=== PATIENT | female | born 1955 | race American Indian/Alaskan Native ===

== ENCOUNTER 2019-05-15 13:49 | Inpatient (IN) | payer MEDICARE ==
[2019-05-15] MEDS ORDERED: ASPIRIN PO ONE (14:00)
[2019-05-15] MEDS ORDERED: NITROSTAT SL ONE (14:06)
--- NOTE | 2019-05-15 14:06 | Event Note ---
Date: 05/15/19 64 y.o with 2 day h/o left sided chest pain, constant, 6/10, aching pain, radiating to her back, no n/v, sob, or diaphoresis. Patient denies any al leviating or exacerbating factors. has been without her blood pressure medications in 2 months. The initial assessment/diagnostic orders/clinical plan/treatment(s) is/are subject to change based on patient's health status,clinical progression and re- assessment by fellow clinical providers in the ED. Further treatment and workup at subsequent clinical providers discretion. Patient/guardian urged not to elope from the ED as their condition may be serious if not clinically assessed and managed.
[2019-05-15 14:39] LABS: Basophils % (Auto) 0.5 % (0.0-1.8); Eosinophils # (Auto) 0.4 K/mm3 (0.0-0.4); Eosinophils % (Auto) 5.4 % (0.0-4.3); Hematocrit 33.5 % (30.3-42.9); Hemoglobin 11.3 gm/dl (10.1-14.3); Lymphocytes # (Auto) 2.9 K/mm3 (1.2-5.4); Lymphocytes % (Auto) 35.1 % (13.4-35.0); Mean Corpuscular HGB Conc 34 % (30-34); Mean Corpuscular Volume 90 fl (79-97); Monocytes # (Auto) 0.9 K/mm3 (0.0-0.8); Monocytes % (Auto) 10.3 % (0.0-7.3); Platelet Count 257 K/mm3 (140-440); Red Blood Count 3.71 M/mm3 (3.65-5.03); Red Cell Distribution Width 13.4 % (13.2-15.2)
--- NOTE | 2019-05-15 14:39 | Emergency Department Report ---
ED Chest Pain HPI - General Chief Complaint: Chest Pain Stated Complaint: CHEST PAIN Time Seen by Provider: 05/15/19 14:09 Source: patient, old records reviewed (no previous medical records for review) Mode of arrival: Ambulatory Limitations: No Limitations - History of Present Illness Initial Comments: 64 year old female with a history of [id number] diabetes, hypertension, and possible elevated cholesterol presents to the hospital with complaints of left-sided chest pain past 2 days. Pain is the left lower chest and radiates to the lateral left chest and back. Pain is constant and aching. No aggravating or alleviating factors reported. Pain is rated 8/10 intensity. She denies shortness of breath, nausea, vomiting, diaphoresis, calf tenderness, leg asymmetry, history of PE/DVT, or cardiac history. She's been noncompliant with all her medications for greater than 2 months (maybe as much as 2 months). She does not smoke. She denies known history of family CAD. She does not have a primary care doctor. Severity scale (0 -10): 8 - Related Data Allergies Allergy/AdvReac Type Severity Reaction Status Date / Time No Known Allergies Allergy Verified 05/15/19 15:24 Heart Score - HEART Score History: Slightly suspicious EKG: Non-specific Age: 45-65 Risk factors: > 3 risk factors or hx of atherosclerotic disease Troponin: < normal limit HEART Score: 4 ED Review of Systems ROS: Stated complaint: CHEST PAIN Other details as noted in HPI Comment: All other systems reviewed and negative ED Past Medical Hx - Past Medical History Hx Hypertension: Yes Hx Diabetes: Yes - Surgical History Past Surgical History?: No - Social History Smoking Status: Never Smoker Substance Use Type: None ED Physical Exam - General Limitations: No Limitations - Other Other exam information: General: No limitations, patient is alert in no acute distress Head exam: Atraumatic, normocephalic Eyes exam: Normal appearance, pupils equal reactive to light, extraocular movements intact ENT: Moist mucous membrane, normal oropharynx Neck exam: Normal inspection, full range of motion, no meningismus nontender Respiratory exam: Clear to auscultation bilateral, no wheezes, rales, crackles Cardiovascular: Normal rate and rhythm, normal heart sounds, mild tenderness at left anterolateral chest wall Abdomen: Soft, nondistended, and nontender, with normal bowel sounds, no rebound, or guarding Extremity: Full range of motion normal inspection no deformity, no calf tenderness or edema Back: Normal Inspection, full range of motion, no tenderness Neurologic: Alert, oriented x3, cranial nerves intact, no motor or sensory deficit Psychiatric: normal affect, normal mood Skin: Warm, dry, intact ED Course Vital Signs 05/15/19 05/15/19 05/15/19 14:03 14:15 14:36 Temperature 97.9 F Pulse Rate 78 84 Respiratory 18 15 Rate Blood Pressure 200/85 Blood Pressure [Left] O2 Sat by Pulse 100 100 98 Oximetry 05/15/19 05/15/19 05/15/19 14:46 14:51 14:55 Temperature Pulse Rate 79 73 78 Respiratory 14 17 Rate Blood Pressure 211/92 211/92 Blood Pressure 211/92 [Left] O2 Sat by Pulse 100 99 Oximetry 05/15/19 05/15/19 05/15/19 14:57 15:00 15:16 Temperature Pulse Rate 80 78 Respiratory 18 15 19 Rate Blood Pressure 222/106 222/106 Blood Pressure [Left] O2 Sat by Pulse 100 99 97 Oximetry 05/15/19 05/15/19 15:30 15:46 Temperature Pulse Rate 77 74 Respiratory 16 25 H Rate Blood Pressure 222/106 211/99 Blood Pressure [Left] O2 Sat by Pulse 100 100 Oximetry ED Medical Decision Making - Lab Data Result diagrams: 05/15/19 14:16 05/15/19 14:16 Lab Results 05/15/19 05/15/19 05/15/19 Range/Units 14:16 14:16 14:16 WBC 8.3 (4.5-11.0) K/mm3 RBC 3.71 (3.65-5.03) M/mm3 Hgb 11.3 (10.1-14.3) gm/dl Hct 33.5 (30.3-42.9) % MCV 90 (79-97) fl MCH 31 (28-32) pg MCHC 34 (30-34) % RDW 13.4 (13.2-15.2) % Plt Count 257 (140-440) K/mm3 Lymph % (Auto) 35.1 H (13.4-35.0) % [place] % (Auto) 10.3 H (0.0-7.3) % Eos % (Auto) 5.4 H (0.0-4.3) % Baso % (Auto) 0.5 (0.0-1.8) % Lymph # 2.9 (1.2-5.4) K/mm3 [place] # 0.9 H (0.0-0.8) K/mm3 Eos # 0.4 (0.0-0.4) K/mm3 Baso # 0.0 (0.0-0.1) K/mm3 Seg Neutrophils % 48.7 (40.0-70.0) % Seg Neutrophils # 4.0 (1.8-7.7) K/mm3 PT 13.6 (12.2-14.9) Sec. INR 1.07 (0.87-1.13) APTT 29.3 (24.2-36.6) Sec. Sodium 143 (137-145) mmol/L Potassium 4.2 (3.6-5.0) mmol/L Chloride 104.7 (98-107) mmol/L Carbon Dioxide 26 (22-30) mmol/L Anion Gap 17 mmol/L BUN 29 H (7-17) mg/dL Creatinine 1.8 H (0.7-1.2) mg/dL Estimated GFR 34 ml/min BUN/Creatinine Ratio 16 % Glucose 116 H (65-100) mg/dL Calcium 9.0 (8.4-10.2) mg/dL Troponin T < 0.010 (0.00-0.029) ng/mL - EKG Data -: EKG Interpreted by Ma EKG shows normal: sinus rhythm, axis (qrs 30), QRS complexes (qrsd 78), ST-T waves (no stemi) Rate: normal (78) - EKG Data When compared to previous EKG there are: previous EKG unavailable - Radiology Data Radiology results: report reviewed INDICATION: Chest Pain. COMPARISON: FINDINGS: Support devices: None. Heart: Within normal limits. Lungs: No acute air space or interstitial disease. Pleura: No significant pleural effusion. No pneumothorax. Additional findings: None. IMPRESSION: 1. No acute findings. - Medical Decision Making Plan to admit for chest pain and uncontrolled hypertension and medication noncompliance Patient treated with aspirin and nitroglycerin paste in the ED She also has renal insufficiency and denies previous history dr Acuna, hospitalist informed of admission - Differential Diagnosis mi, unstable angina, htn emergency, msk pain Critical Care Time: No Critical care attestation.: If time is entered above; I have spent that time in minutes in the direct care of this critically ill patient, excluding procedure time. ED Disposition Clinical Impression: Chest pain, Uncontrolled hypertension, Non-insulin dependent type 2 diabetes mellitus, Noncompliance with medication regimen, Acute renal insufficiency Disposition: OP ADMIT IP TO THIS HOSP Is pt being admited?: Yes Does the pt Need Aspirin: Yes Condition: Stable Time of Disposition: 15:52 (DR Acuna/hosp)
[2019-05-15 14:42] LABS: INR 1.07 (0.87-1.13); Partial Thromboplastin Time 29.3 Sec. (24.2-36.6)
[2019-05-15 14:54] LABS: BUN/Creatinine Ratio 16; Blood Urea Nitrogen 29 mg/dL (7-17); Hemolysis Index 3
[2019-05-15] MEDS ORDERED: NITRO-BID 2% TP ONE ×2 (15:02→15:05)
--- NOTE | 2019-05-15 15:07 | XRay Report ---
CHEST 2 VIEWS INDICATION: Chest Pain. COMPARISON: FINDINGS: Support devices: None. Heart: Within normal limits. Lungs: No acute air space or interstitial disease. Pleura: No significant pleural effusion. No pneumothorax. Additional findings: None. IMPRESSION: 1. No acute findings. Signer Name: Justin Guardado MD Signed: 05/15/2019 3:02 PM Workstation Name: [id number]
[2019-05-15] MEDS ORDERED: BABY ASPIRIN PO STA (15:52)
[2019-05-15] MEDS ORDERED: SODIUM CHLORIDE FLUSH SYRINGE 10 ML IV PRN (15:52)
[2019-05-15] MEDS ORDERED: ZOFRAN IV PRN (15:52)
[2019-05-15] MEDS ORDERED: PROVENTIL IH PRN (15:52)
[2019-05-15] MEDS ORDERED: TYLENOL PO PRN (15:52)
[2019-05-15] MEDS ORDERED: NITROSTAT SL PRN (15:52)
--- NOTE | 2019-05-15 15:52 | History and Physical Report ---
History of Present Illness Chief complaint: My chest hurts History of present illness: 64 YO Female with MO, HTN, HLD, DM, Obesity Hypoventilation presents to ED for evaluation. Pt states that she has experienced pain in her chest over the past 2 days with acutely worsening symptoms over the past 12 hours. Pt states tht pain is 8-9/10, constant, aching, substernal, radiates to the left lateral chest and left side of her back. Pain not worsened with exertion, pain not relieved with rest. Pt acknowledges decreased exercise tolerance, and dypsnea with exertion. Pt denies fever, chills, palpitations, NVD, Trauma, BRBPR, Productive cough, skin rash, prolonged travel/immobility, Individual/family history of DVT/PE/B leedign/Blood Clotting Disorders, or recent ill contacts. Pt acknowledges medication noncompliance, dietary noncompliance. Pt transported to [facility] via private vehicle. Pt seen and evaluated in ED and found to have Acute Kidney Injury, Angina, as well as symptoms consistent with CHF. Pt admitted to [facility]. Cardiology consulted in ED. No prior admission for review. No medication listed at time of admission for reconciliation. Past History Past Medical History: hypertension, hyperlipidemia, other (MO, Obesity Hypoventilation.) Past Surgical History: No surgical history, Other (reviewed) Social history: single. denies: smoking, alcohol abuse, prescription drug abuse Family history: diabetes, hypertension Medications and Allergies Allergies Allergy/AdvReac Type Severity Reaction Status Date / Time No Known Allergies Allergy Verified 05/15/19 15:24 Review of Systems Constitutional: no weight loss, no weight gain, no fever, no chills Ears, nose, mouth and throat: no ear pain, no ear discharge, no tinnitis, no decreased hearing, no nose pain Breasts: no change in shape, no swelling, no mass Cardiovascular: chest pain, dyspnea on exertion, decreased exercise tolerance, no orthopnea, no palpitations, no rapid/irregular heart beat, no lightheadedness, no paroxysmal nocturnal dyspnea Respiratory: no cough, no cough with sputum, no excessive sputum, no hemoptysis, no shortness of breath Gastrointestinal: no nausea, no vomiting, no diarrhea, no constipation Genitourinary Female: no pelvic pain, no flank pain, no menorrhagia, no dysuria Rectal: no pain, no incontinence, no bleeding Musculoskeletal: no neck stiffness, no neck pain, no shooting arm pain, no arm numbness/tingling, no low back pain, no shooting leg pain Integumentary: no rash, no pruritis, no redness, no sores, no wounds Neurological: no transient paralysis, no paralysis, no weakness, no parathesias, no numbness, no tingling Psychiatric: no anxiety, no memory loss, no change in sleep habits, no sleep disturbances, no insomnia, no hypersomnia, no change in appetite Endocrine: no cold intolerance, no heat intolerance, no polyphagia, no excessive thirst, no polydipsia, no polyuria, no nocturia, no excessive sweating, no flushing Hematologic/Lymphatic: no easy bruising, no easy bleeding, no lymphadenopathy, no lymphedema Allergic/Immunologic: no urticaria, no allergic rhinitis, no wheezing, no anaphylaxis, no angioedema Exam - Constitutional Vitals: Temp Pulse Resp BP Pulse Ox 97.9 F 74 25 H 211/99 100 05/15/19 14:03 05/15/19 15:46 05/15/19 15:46 05/15/19 15:46 05/15/19 15:46 General appearance: Present: mild distress - EENT Eyes: Present: PERRL ENT: hearing intact, clear oral mucosa - Neck Neck: Present: supple, normal ROM - Respiratory Respiratory effort: normal Respiratory: bilateral: CTA - Cardiovascular Heart Sounds: Present: S1 & S2. Absent: rub, click - Extremities Extremities: pulses symmetrical, No edema Peripheral Pulses: within normal limits - Abdominal General gastrointestinal: Present: soft, non-tender, non-distended, normal bowel sounds Female genitourinary: Present: normal - Integumentary Integumentary: Present: clear, warm, dry - Musculoskeletal Musculoskeletal: gait normal, strength equal bilaterally - Psychiatric Psychiatric: appropriate mood/affect, intact judgment & insight - Neurologic Neurologic: CNII-XII intact, moves all extremities Results - Labs CBC & Chem 7: 05/15/19 14:16 05/15/19 14:16 Labs: Abnormal lab results 05/15/19 05/15/19 Range/Units 14:16 14:16 Lymph % (Auto) 35.1 H (13.4-35.0) % [place] % (Auto) 10.3 H (0.0-7.3) % Eos % (Auto) 5.4 H (0.0-4.3) % [place] # 0.9 H (0.0-0.8) K/mm3 BUN 29 H (7-17) mg/dL Creatinine 1.8 H (0.7-1.2) mg/dL Glucose 116 H (65-100) mg/dL Assessment and Plan - Patient Problems (1) Diastolic CHF Current Visit: Yes Status: Acute Qualifiers: Heart failure chronicity: acute Qualified Code(s): I50.31 - Acute diastolic (congestive) heart failure Plan to address problem: Admit to telemetry, thyroid panel, magnesium level, echo, strict I/O, daily weight, monitor uop q shift, supplemental oxygen, cardiology consulted in ED, afterload reduction. (2) Hypertensive urgency, malignant Current Visit: Yes Status: Acute Plan to address problem: Monitor BP q shift, IV hydralazine prn, initiate therapy with Amlodipine and HCTZ, (3) Obesity hypoventilation syndrome Current Visit: Yes Status: Acute Plan to address problem: NIPPV as clinically indicated, supplemental oxygen, nebulizer therapy. (4) HLD (hyperlipidemia) Current Visit: Yes Status: Acute Qualifiers: Hyperlipidemia type: mixed hyperlipidemia Qualified Code(s): E78.2 - Mixed hyperlipidemia Plan to address problem: Lipid panel, statin therapy, low cholesterol diet, (5) Angina at rest Current Visit: Yes Status: Acute Plan to address problem: Serial cardiac enzymes, ekg, telemetry, stress test as per cardiology team. c ardiology consulted in ED, chest x ray, CT Abdomen, morphine, nitro, supplemental oxygen, aspirin. (6) MARISELA (acute kidney injury) Current Visit: Yes Status: Acute Plan to address problem: IVF resuscitation therapy, monitor uop q shift, repeat bmp in am (7) Non-insulin dependent type 2 diabetes mellitus Current Visit: Yes Status: Acute Plan to address problem: ADA diet, insulin, accu check, hyoglycemia protocol. (8) Noncompliance with medication regimen Current Visit: Yes Status: Acute Plan to address problem: Pt counseled regarding medication compliance, (9) DVT prophylaxis Current Visit: Yes Status: Acute Plan to address problem: SCD to BLE while in bed, prophylactic heparin
[2019-05-15] MEDS ORDERED: ZOFRAN IV ONE (15:54)
[2019-05-15] MEDS ORDERED: MORPHINE IV ONE (15:54)
[2019-05-15] MEDS ORDERED: ZOFRAN IV NR (16:00)
[2019-05-15 16:49] LABS: Chol/HDL Ratio 5.42 %
[2019-05-15 16:56] LABS: Free T4 (Free Thyroxine) 1.1 ng/dL (0.76-1.46)
[2019-05-15] MEDS ORDERED: ZOFRAN ONE (17:09)
[2019-05-15] MEDS ORDERED: NORVASC ONE (17:09)
[2019-05-15] MEDS ORDERED: MORPHINE ONE (17:10)
[2019-05-15] MEDS ORDERED: HCTZ ONE (17:11)
[2019-05-15] MEDS: HCTZ PO SCH (17:13)
[2019-05-15] MEDS: NORVASC PO SCH (17:14)
[2019-05-15] MEDS ORDERED: HEPARIN SUB-Q SCH (18:00)
--- NOTE | 2019-05-15 18:01 | Cat Scan Report ---
CT ABDOMEN AND PELVIS WITHOUT CONTRAST INDICATION / CLINICAL INFORMATION: pain. TECHNIQUE: Axial CT images were obtained through the abdomen and pelvis without IV contrast. All CT scans at [facility] location are performed using CT dose reduction for ALARA by means of automated exposure control. COMPARISON: None available. FINDINGS: The exam is limited in diagnostic category secondary to patient's body habitus LOWER CHEST: No significant abnormality. LIVER: No significant abnormality. GALLBLADDER: No significant abnormality. BILE DUCTS: No significant abnormality. PANCREAS: No significant abnormality. SPLEEN: Calcified splenic granulomas are present. ADRENALS: The adrenal glands are markedly enlarged left greater than right RIGHT KIDNEY and URETER: No significant abnormality. LEFT KIDNEY and URETER: No significant abnormality. STOMACH and SMALL BOWEL: No significant abnormality. COLON: No significant abnormality. APPENDIX: No significant abnormality. PERITONEUM: No free fluid. No free air. No fluid collection. LYMPH NODES: No significant adenopathy. AORTA and ARTERIES: No significant abnormality. IVC and VEINS: No significant abnormality. URINARY BLADDER: No significant abnormality. REPRODUCTIVE ORGANS: No significant abnormality. ADDITIONAL FINDINGS: None. SKELETAL SYSTEM: Degenerative changes lumbar spine is present IMPRESSION: 1. Bilateral adrenal enlargement-masses, etiology unclear 2. Degenerative changes lumbar spine 3. Limited diagnostic imaging secondary to patient's body habitus Signer Name: Justin Guardado MD Signed: 05/15/2019 5:57 PM Workstation Name: [id number]
[2019-05-15 18:39] LABS: Free T4 (Free Thyroxine) 1.03 ng/dL (0.76-1.46)
[2019-05-15] MEDS: NACL 0.45% 500 ML IV SCH (19:00)
[2019-05-15] MEDS: PEPCID PO SCH (21:36)
[2019-05-15] MEDS: PRAVACHOL PO SCH (21:36)
[2019-05-15] MEDS: SODIUM CHLORIDE FLUSH SYRINGE 10 ML IV SCH (21:37)
[2019-05-15] MEDS: MORPHINE IV PRN (21:45)
[2019-05-15] MEDS: SODIUM CHLORIDE FLUSH SYRINGE 10 ML IV PRN (21:46)
[2019-05-15] MEDS: APRESOLINE IV PRN (21:53)
[2019-05-16] MEDS: SODIUM CHLORIDE FLUSH SYRINGE 10 ML IV PRN (03:48)
[2019-05-16] MEDS: NACL 0.45% 500 ML IV SCH (03:49)
[2019-05-16 06:07] LABS: Alanine Aminotransferase 9 units/L (7-56); Albumin 3.3 g/dL (3.9-5); BUN/Creatinine Ratio 15; Blood Urea Nitrogen 34 mg/dL (7-17); Calcium 8.8 mg/dL (8.4-10.2); Hemolysis Index 2
[2019-05-16] MEDS: PEPCID PO SCH ×2 (10:30→21:58)
[2019-05-16] MEDS: NORVASC PO SCH (10:30)
[2019-05-16] MEDS: HEPARIN SUB-Q SCH ×2 (10:30→22:01)
[2019-05-16] MEDS: HCTZ PO SCH (10:30)
[2019-05-16] MEDS: SODIUM CHLORIDE FLUSH SYRINGE 10 ML IV SCH ×2 (10:31→22:02)
--- NOTE | 2019-05-16 10:50 | Consultation ---
History of Present Illness Consult date: 05/16/19 Consult reason: chest pain History of present illness: 64 year old female presenting with left sided chest pain radiating to the back. She tries to make it feel better with movement. No previous cardiac history or cardiac testing. 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 Past History Past Medical History: hypertension, hyperlipidemia, other (MO, Obesity Hypoventilation.) Past Surgical History: No surgical history, Other (reviewed) Social history: single. denies: smoking, alcohol abuse, prescription drug abuse Family history: diabetes, hypertension Medications and Allergies Allergies Allergy/AdvReac Type Severity Reaction Status Date / Time No Known Allergies Allergy Verified 05/15/19 15:24 Home Medications Medication Instructions Recorded Confirmed Last Taken Type No Known Home Medications [No 05/15/19 05/15/19 Unknown History Reported Home Medications] Active Meds: Active Medications Acetaminophen (Tylenol) 650 mg PO Q4H PRN PRN Reason: Pain MILD(1-3)/Fever >100.5/DELGADO Albuterol (Proventil) 2.5 mg IH Q4HRT PRN PRN Reason: Shortness Of Breath Amlodipine Besylate (Norvasc) 5 mg PO QDAY [facility] Last Admin: 05/16/19 10:30 Dose: 5 mg Documented by: Famotidine (Pepcid) 10 mg PO BID [facility] Last Admin: 05/16/19 10:30 Dose: 10 mg Documented by: Heparin Sodium (Porcine) (Heparin) 5,000 unit SUB-Q Q12HR [facility] Last Admin: 05/16/19 10:30 Dose: 5,000 unit Documented by: Hydralazine HCl (Apresoline) 10 mg IV Q6HR PRN PRN Reason: HTN SBP>160 Last Admin: 05/15/19 21:53 Dose: 10 mg Documented by: Hydrochlorothiazide (Hctz) 25 mg PO QDAY [facility] Last Admin: 05/16/19 10:30 Dose: 25 mg Documented by: Sodium Chloride (Nacl 0.45%) 500 mls @ 50 mls/hr IV DIRECT [facility] Last Admin: 05/16/19 03:49 Dose: 50 mls/hr Documented by: Morphine Sulfate (Morphine) 2 mg IV Q4H PRN PRN Reason: Pain, Moderate (4-6) Last Admin: 05/15/19 21:45 Dose: 2 mg Documented by: Nitroglycerin (Nitrostat) 0.4 mg SL Q5M PRN PRN Reason: Chest Pain Ondansetron HCl (Zofran) 4 mg IV Q8H PRN PRN Reason: Nausea And Vomiting Pravastatin Sodium (Pravachol) 20 mg PO QHS [facility] Last Admin: 05/15/19 21:36 Dose: 20 mg Documented by: Sodium Chloride (Sodium Chloride Flush Syringe 10 Ml) 10 ml IV BID [facility] Last Admin: 05/16/19 10:31 Dose: 10 ml Documented by: Sodium Chloride (Sodium Chloride Flush Syringe 10 Ml) 10 ml IV PRN PRN PRN Reason: LINE FLUSH Last Admin: 05/16/19 03:48 Dose: 10 ml Documented by: Sodium Chloride (Sodium Chloride Flush Syringe 10 Ml) 10 ml IV PRN PRN PRN Reason: LINE FLUSH Review of Systems All systems: negative Physical Examination Vital Signs Temp Pulse Resp BP Pulse Ox 97.9 F 78 18 200/85 100 05/15/19 14:03 05/15/19 14:03 05/15/19 14:03 05/15/19 14:03 05/15/19 14:03 General appearance: no acute distress HEENT: Positive: PERRL Neck: Positive: neck supple Cardiac: Positive: Reg Rate and Rhythm Lungs: Positive: Normal Exam Abdomen: Positive: Soft Results 05/15/19 14:16 05/16/19 04:53 Cardiac Enzymes 05/16/19 Range/Units 04:53 AST 11 (5-40) units/L Coagulation 05/15/19 Range/Units 14:16 PT 13.6 (12.2-14.9) Sec. INR 1.07 (0.87-1.13) APTT 29.3 (24.2-36.6) Sec. Lipids 05/15/19 Range/Units 16:15 Triglycerides 100 (2-149) mg/dL Cholesterol 304 H (50-199) mg/dL HDL Cholesterol 56 (40-59) mg/dL Cholesterol/HDL Ratio 5.42 % CBC 05/15/19 Range/Units 14:16 WBC 8.3 (4.5-11.0) K/mm3 RBC 3.71 (3.65-5.03) M/mm3 Hgb 11.3 (10.1-14.3) gm/dl Hct 33.5 (30.3-42.9) % Plt Count 257 (140-440) K/mm3 Lymph # 2.9 (1.2-5.4) K/mm3 [place] # 0.9 H (0.0-0.8) K/mm3 Eos # 0.4 (0.0-0.4) K/mm3 Baso # 0.0 (0.0-0.1) K/mm3 Comprehensive Metabolic Panel 05/15/19 05/16/19 Range/Units 14:16 04:53 Sodium 143 140 (137-145) mmol/L Potassium 4.2 4.6 (3.6-5.0) mmol/L Chloride 104.7 101.7 (98-107) mmol/L Carbon Dioxide 26 25 (22-30) mmol/L BUN 29 H 34 H (7-17) mg/dL Creatinine 1.8 H 2.3 H (0.7-1.2) mg/dL Glucose 116 H 171 H (65-100) mg/dL Calcium 9.0 8.8 (8.4-10.2) mg/dL AST 11 (5-40) units/L ALT 9 (7-56) units/L Alkaline Phosphatase 75 (35-129) units/L Total Protein 6.5 (6.3-8.2) g/dL Albumin 3.3 L (3.9-5) g/dL EKG interpretations - Telemetry EKG Rhythm: Sinus Rhythm Assessment and Plan Atypical chest pain No ischemic ECG changes Negative troponin x 3 Negative CXR Negative BNP Uncontrolled type II DM Hyperlipidemia LDL 228 Acute on chronic renal failure Bilateral adrenal masses on CT Recommendations: Due to multiple CAD risk factors, will proceed with lexiscan in am
--- NOTE | 2019-05-16 11:10 | Progress Note ---
Assessment and Plan Assessment and plan: 64 YO Female with MO, HTN, HLD, DM, Obesity Hypoventilation presents to ED for evaluation. Pt states that she has experienced pain in her chest over the past 2 days with acutely worsening symptoms over the past 12 hours. Pt states tht pain is 8-9/10, constant, aching, substernal, radiates to the left lateral chest and left side of her back. Pain not worsened with exertion, pain not relieved with rest. Pt acknowledges decreased exercise tolerance, and dypsnea with exertion. Pt denies fever, chills, palpitations, NVD, Trauma, BRBPR, Productive cough, skin rash, prolonged travel/immobility, Individual/family history of DVT/PE/Bleedign/Blood Clotting Disorders, or recent ill contacts. Pt acknowledges medication noncompliance, dietary noncompliance. Pt transported to [facility] via private vehicle. Pt seen and evaluated in ED and found to have Acute Kidney Injury, Angina, as well as symptoms consistent with CHF. Pt admitted to telemetry. Cardiology consulted in ED. No prior admission for review. No med ication listed at time of admission for reconciliation. - Patient Problems (1) Atypical chest pain doubt CHF likely secondary to costochondritis versus hypertensive disease Cardiology input noted. Stress test planned for him. (2) Hypertensive urgency, malignant Current Visit: Yes Status: Acute Plan to address problem: Monitor BP q shift, IV hydralazine prn, initiate therapy with Amlodipine and HCTZ, (3) Obesity hypoventilation syndrome Current Visit: Yes Status: Acute Plan to address problem: NIPPV as clinically indicated, supplemental oxygen, nebulizer therapy. (4) HLD (hyperlipidemia) Current Visit: Yes Status: Acute Qualifiers: Hyperlipidemia type: mixed hyperlipidemia Qualified Code(s): E78.2 - Mixed hyperlipidemia Plan to address problem: Lipid panel, statin therapy, low cholesterol diet, (5) Angina at rest Current Visit: Yes Status: Acute Plan to address problem: Serial cardiac enzymes, ekg, telemetry, stress test as per cardiology team. cardiology consulted in ED, chest x ray, CT Abdomen, morphine, nitro, supplemental oxygen, aspirin. (6) MARISELA (acute kidney injury) Current Visit: Yes Status: Acute Plan to address problem: Continue IVF resuscitation therapy, monitor uop q shift, repeat bmp in am Renal ultrasound reviewed no acute pathology noted Renal us (7) Non-insulin dependent type 2 diabetes mellitus Current Visit: Yes Status: Acute Plan to address problem: ADA diet, insulin, accu check, hyoglycemia protocol. (8) Noncompliance with medication regimen Current Visit: Yes Status: Acute Plan to address problem: Pt counseled regarding medication compliance, (9) ADRENAL enlargement Plan for outpatient endocrinology eval. Patient verbalized understanding, will arrange with PCP (10)DVT prophylaxis Current Visit: Yes Status: Acute Plan to address problem: SCD to BLE while in bed, prophylactic heparin History Interval history: The patient is on examined today reports improvement in symptoms no new complaints at this time. Hospitalist Physical - Physical exam Narrative exam: Physical exam template - Constitutional Vitals: Temp Pulse Resp BP Pulse Ox 98.9 F 77 20 149/59 99 05/16/19 09:09 05/16/19 10:30 05/16/19 09:09 05/16/19 10:30 05/16/19 09:09 General appearance: Present: no acute distress Results - Labs CBC & Chem 7: 05/15/19 14:16 05/16/19 04:53 Labs: Laboratory Last Values WBC 8.3 K/mm3 (4.5-11.0) 05/15/19 14:16 RBC 3.71 M/mm3 (3.65-5.03) 05/15/19 14:16 Hgb 11.3 gm/dl (10.1-14.3) 05/15/19 14:16 Hct 33.5 % (30.3-42.9) 05/15/19 14:16 MCV 90 fl (79-97) 05/15/19 14:16 MCH 31 pg (28-32) 05/15/19 14:16 MCHC 34 % (30-34) 05/15/19 14:16 RDW 13.4 % (13.2-15.2) 05/15/19 14:16 Plt Count 257 K/mm3 (140-440) 05/15/19 14:16 Lymph % (Auto) 35.1 % (13.4-35.0) H 05/15/19 14:16 [place] % (Auto) 10.3 % (0.0-7.3) H 05/15/19 14:16 Eos % (Auto) 5.4 % (0.0-4.3) H 05/15/19 14:16 Baso % (Auto) 0.5 % (0.0-1.8) 05/15/19 14:16 Lymph # 2.9 K/mm3 (1.2-5.4) 05/15/19 14:16 [place] # 0.9 K/mm3 (0.0-0.8) H 05/15/19 14:16 Eos # 0.4 K/mm3 (0.0-0.4) 05/15/19 14:16 Baso # 0.0 K/mm3 (0.0-0.1) 05/15/19 14:16 Seg Neutrophils % 48.7 % (40.0-70.0) 05/15/19 14:16 Seg Neutrophils # 4.0 K/mm3 (1.8-7.7) 05/15/19 14:16 PT 13.6 Sec. (12.2-14.9) 05/15/19 14:16 INR 1.07 (0.87-1.13) 05/15/19 14:16 APTT 29.3 Sec. (24.2-36.6) 05/15/19 14:16 Sodium 140 mmol/L (137-145) 05/16/19 04:53 Potassium 4.6 mmol/L (3.6-5.0) 05/16/19 04:53 Chloride 101.7 mmol/L (98-107) 05/16/19 04:53 Carbon Dioxide 25 mmol/L (22-30) 05/16/19 04:53 18 mmol/L 05/16/19 04:53 BUN 34 mg/dL (7-17) H 05/16/19 04:53 2.3 mg/dL (0.7-1.2) H 05/16/19 04:53 Estimated GFR 26 ml/min 05/16/19 04:53 15 % 05/16/19 04:53 Glucose 171 mg/dL (65-100) H 05/16/19 04:53 Calcium 8.8 mg/dL (8.4-10.2) 05/16/19 04:53 Magnesium 2.30 mg/dL (1.7-2.3) 05/15/19 17:48 < 0.20 mg/dL (0.1-1.2) 05/16/19 04:53 AST 11 units/L (5-40) 05/16/19 04:53 ALT 9 units/L (7-56) 05/16/19 04:53 75 units/L (35-129) 05/16/19 04:53 < 0.010 ng/mL (0.00-0.029) 05/15/19 20:36 NT-Pro-B Natriuret Pep 428.7 pg/mL (0-900) 05/15/19 16:15 6.5 g/dL (6.3-8.2) 05/16/19 04:53 3.3 g/dL (3.9-5) L 05/16/19 04:53 1.0 % 05/16/19 04:53 Triglycerides 100 mg/dL (2-149) 05/15/19 16:15 Cholesterol 304 mg/dL (50-199) H 05/15/19 16:15 228 mg/dL (50-130) H 05/15/19 16:15 56 mg/dL (40-59) 05/15/19 16:15 5.42 % 05/15/19 16:15 TSH 1.610 mlU/mL (0.270-4.200) 05/15/19 17:48 Free T4 1.03 ng/dL (0.76-1.46) 05/15/19 17:48 Active Medications - Current Medications Current Medications: Generic Name Dose Route Start Last Admin Trade Name Freq PRN Reason Stop Dose Admin Acetaminophen 650 mg 05/15/19 15:52 Tylenol PO Q4H PRN Pain MILD(1-3)/Fever >100.5/DELGADO Albuterol 2.5 mg 05/15/19 15:52 Proventil IH Q4HRT PRN Shortness Of Breath Amlodipine Besylate 5 mg 05/15/19 17:00 05/16/19 10:30 Norvasc PO 5 mg QDAY BETO Administration Aspirin 81 mg 05/17/19 10:00 Halfprin Ec PO QDAY BETO Famotidine 10 mg 05/15/19 22:00 05/16/19 10:30 Pepcid PO 10 mg BID BETO Administration Heparin Sodium (Porcine) 5,000 unit 05/16/19 10:00 05/16/19 10:30 Heparin SUB-Q 5,000 unit Q12HR BETO Administration Hydralazine HCl 10 mg 05/15/19 15:56 05/15/19 21:53 Apresoline IV 10 mg Q6HR PRN Administration HTN SBP>160 Hydrochlorothiazide 25 mg 05/15/19 17:00 05/16/19 10:30 Hctz PO 25 mg QDAY BETO Administration Sodium Chloride 500 mls @ 50 mls/hr 05/15/19 16:00 05/16/19 03:49 Nacl 0.45% IV 50 mls/hr DIRECT BETO Administration Morphine Sulfate 2 mg 05/15/19 15:52 05/15/19 21:45 Morphine IV 2 mg Q4H PRN Administration Pain, Moderate (4-6) Nitroglycerin 0.4 mg 05/15/19 15:52 Nitrostat SL Q5M PRN Chest Pain Ondansetron HCl 4 mg 05/15/19 15:52 Zofran IV Q8H PRN Nausea And Vomiting Pravastatin Sodium 20 mg 05/15/19 22:00 05/15/19 21:36 Pravachol PO 20 mg QHS BETO Administration Sodium Chloride 10 ml 05/15/19 22:00 05/16/19 10:31 Sodium Chloride Flush Syringe 10 Ml IV 10 ml BID BETO Administration Sodium Chloride 10 ml 05/15/19 15:52 05/16/19 03:48 Sodium Chloride Flush Syringe 10 Ml IV 10 ml PRN PRN Administration LINE FLUSH Sodium Chloride 10 ml 05/15/19 15:52 Sodium Chloride Flush Syringe 10 Ml IV PRN PRN LINE FLUSH
--- NOTE | 2019-05-16 15:23 | Ultrasound Report ---
ULTRASOUND RENAL INDICATION: [place]. COMPARISON: No relevant prior imaging study available. FINDINGS: RIGHT KIDNEY: Size: 10.8 x 4.5 x 4.5 cm. Echogenicity: Normal. Cortical thickness: Normal. Hydronephrosis: None. Cyst or mass: None. Stones: None. LEFT KIDNEY: Size: 9.0 x 4.9 x 5.0 cm. Echogenicity: Normal. Cortical thickness: Normal. Hydronephrosis: None. Cyst or mass: None. Stones: None. Urinary Bladder: No significant abnormality. Free Fluid: None. Additional Findings: None. IMPRESSION 1. No acute sonographic abnormality of the kidneys. Signer Name: Justin Guardado MD Signed: 05/16/2019 3:19 PM Workstation Name: [id number]
[2019-05-16] MEDS: NACL 0.9% 1000 ML 1,000 ML IV SCH (18:03)
[2019-05-16] MEDS: PRAVACHOL PO SCH (21:58)
[2019-05-16] MEDS: CEPHULAC PO SCH (21:58)
[2019-05-16] MEDS: APRESOLINE IV PRN (22:00)
[2019-05-17] MEDS: MORPHINE IV PRN ×2 (00:27→05:58)
[2019-05-17] MEDS: SODIUM CHLORIDE FLUSH SYRINGE 10 ML IV PRN (00:27)
[2019-05-17 05:35] LABS: Hematocrit 33.1 % (30.3-42.9); Hemoglobin 11.1 gm/dl (10.1-14.3); Mean Corpuscular HGB Conc 34 % (30-34); Mean Corpuscular Volume 91 fl (79-97); Platelet Count 254 K/mm3 (140-440); Red Blood Count 3.63 M/mm3 (3.65-5.03); Red Cell Distribution Width 13.2 % (13.2-15.2)
[2019-05-17] MEDS: APRESOLINE IV PRN ×2 (05:57→20:23)
[2019-05-17 06:01] LABS: Calcium 8.9 mg/dL (8.4-10.2)
[2019-05-17] MEDS ORDERED: LEXISCAN IV ONE ×2 (07:06→08:56)
[2019-05-17] MEDS: HALFPRIN EC PO SCH (12:22)
[2019-05-17] MEDS: NORVASC PO SCH (12:22)
[2019-05-17] MEDS: CEPHULAC PO SCH ×2 (12:22→22:34)
[2019-05-17] MEDS: HEPARIN SUB-Q SCH ×2 (12:22→22:34)
[2019-05-17] MEDS: SODIUM CHLORIDE FLUSH SYRINGE 10 ML IV SCH ×2 (12:23→22:36)
[2019-05-17] MEDS: PEPCID PO SCH ×2 (12:23→22:33)
[2019-05-17] MEDS: PERCOCET 5/325 PO PRN (13:02)
--- NOTE | 2019-05-17 16:44 | Progress Note ---
Assessment and Plan Assessment and plan: 64 YO Female with MO, HTN, HLD, DM, Obesity Hypoventilation presents to ED for evaluation. Pt states that she has experienced pain in her chest over the past 2 days with acutely worsening symptoms over the past 12 hours. Pt states tht pain is 8-9/10, constant, aching, substernal, radiates to the left lateral chest and left side of her back. Pain not worsened with exertion, pain not relieved with rest. Pt acknowledges decreased exercise tolerance, and dypsnea with exertion. Pt denies fever, chills, palpitations, NVD, Trauma, BRBPR, Productive cough, skin rash, prolonged travel/immobility, Individual/family history of DVT/PE/Bleedign/Blood Clotting Disorders, or recent ill contacts. Pt acknowledges medication noncompliance, dietary noncompliance. Pt transported to [facility] via private vehicle. Pt seen and evaluated in ED and found to have Acute Kidney Injury, Angina, as well as symptoms consistent with CHF. Pt admitted to telemetry. Cardiology consulted in ED. No prior admission for review. No med ication listed at time of admission for reconciliation. - Patient Problems (1) Atypical chest pain secondary to costochondritis as a result of hypertensive disease Cardiology input noted. Stress test result pending (2) Hypertensive urgency, malignant Current Visit: Yes Status: Acute Plan to address problem: Monitor BP q shift, IV hydralazine prn, initiate therapy with Amlodipine and will adjust upward to 10mg daily and HCTZ, Give extra dose of Norvasc today, (3) Obesity hypoventilation syndrome Current Visit: Yes Status: Acute Plan to address problem: NIPPV as clinically indicated, supplemental oxygen, nebulizer therapy. (4) HLD (hyperlipidemia) Current Visit: Yes Status: Acute Qualifiers: Hyperlipidemia type: mixed hyperlipidemia Qualified Code(s): E78.2 - Mixed hyperlipidemia Plan to address problem: statin therapy, low cholesterol diet, Result on lipids test discussed with patient (5) MARISELA (acute kidney injury) Current Visit: Yes Status: Acute Plan to address problem: Continue IVF resuscitation therapy, monitor uop q shift, repeat bmp in am Renal ultrasound reviewed no acute pathology noted Renal us- NORMAL Nephrology consult (6) Non-insulin dependent type 2 diabetes mellitus Current Visit: Yes Status: Acute Plan to address problem: ADA diet, insulin, accu check, hyoglycemia protocol. (7) Noncompliance with medication regimen Current Visit: Yes Status: Acute Plan to address problem: Pt counseled regarding medication compliance, (8) ADRENAL enlargement Plan for outpatient endocrinology eval. Patient verbalized understanding, will arrange with PCP (9)DVT prophylaxis Current Visit: Yes Status: Acute Plan to address problem: SCD to BLE while in bed, prophylactic heparin History Interval history: Patient seen and examined, went for stress test. Nursing staff reported that patient complained of reproducible chest pain on return from stress test. Otherwise no new complaints Hospitalist Physical - Physical exam Narrative exam: VITAL SIGNS: Reviewed. GENERAL: The patient appears normally developed, Vital signs as documented. morbidly obese HEAD: No signs of head trauma. EYES: Pupils are equal. Extraocular motions intact. EARS: Hearing grossly intact. MOUTH: Oropharynx is normal. NECK: No adenopathy, no JVD. CHEST: Chest with clear breath sounds bilaterally. No wheezes, rales, or rhonchi. CARDIAC: Regular rate and rhythm. S1 and S2, without murmurs, gallops, or rubs. VASCULAR: No Edema. Peripheral pulses normal and equal in all extremities. ABDOMEN: Soft, non tender and non distended. No rebound or guarding, and no masses palpated. Bowel Sounds normal. MUSCULOSKELETAL: Good range of motion of all major joints. Extremities without clubbing, cyanosis or edema. NEUROLOGIC EXAM: Alert and oriented x 3 No focal sensory or strength deficits. Speech normal. Follows commands. PSYCHIATRIC: Mood normal. SKIN: detial exam as documented in skin assessment - Constitutional Vitals: Temp Pulse Resp BP Pulse Ox 98.4 F 76 18 195/49 99 05/17/19 08:18 05/17/19 11:40 05/17/19 08:18 05/17/19 12:22 05/17/19 03:37 General appearance: Present: no acute distress Results - Labs CBC & Chem 7: 05/17/19 04:36 05/17/19 04:36 Labs: Laboratory Last Values WBC 6.6 K/mm3 (4.5-11.0) 05/17/19 04:36 RBC 3.63 M/mm3 (3.65-5.03) L 05/17/19 04:36 Hgb 11.1 gm/dl (10.1-14.3) 05/17/19 04:36 Hct 33.1 % (30.3-42.9) 05/17/19 04:36 MCV 91 fl (79-97) 05/17/19 04:36 MCH 31 pg (28-32) 05/17/19 04:36 MCHC 34 % (30-34) 05/17/19 04:36 RDW 13.2 % (13.2-15.2) 05/17/19 04:36 Plt Count 254 K/mm3 (140-440) 05/17/19 04:36 Lymph % (Auto) 35.1 % (13.4-35.0) H 05/15/19 14:16 [place] % (Auto) 10.3 % (0.0-7.3) H 05/15/19 14:16 Eos % (Auto) 5.4 % (0.0-4.3) H 05/15/19 14:16 Baso % (Auto) 0.5 % (0.0-1.8) 05/15/19 14:16 Lymph # 2.9 K/mm3 (1.2-5.4) 05/15/19 14:16 [place] # 0.9 K/mm3 (0.0-0.8) H 05/15/19 14:16 Eos # 0.4 K/mm3 (0.0-0.4) 05/15/19 14:16 Baso # 0.0 K/mm3 (0.0-0.1) 05/15/19 14:16 Seg Neutrophils % 48.7 % (40.0-70.0) 05/15/19 14:16 Seg Neutrophils # 4.0 K/mm3 (1.8-7.7) 05/15/19 14:16 PT 13.6 Sec. (12.2-14.9) 05/15/19 14:16 INR 1.07 (0.87-1.13) 05/15/19 14:16 APTT 29.3 Sec. (24.2-36.6) 05/15/19 14:16 Sodium 140 mmol/L (137-145) 05/17/19 04:36 Potassium 4.5 mmol/L (3.6-5.0) 05/17/19 04:36 Chloride 104.3 mmol/L (98-107) 05/17/19 04:36 Carbon Dioxide 24 mmol/L (22-30) 05/17/19 04:36 16 mmol/L 05/17/19 04:36 BUN 33 mg/dL (7-17) H 05/17/19 04:36 2.3 mg/dL (0.7-1.2) H 05/17/19 04:36 Estimated GFR 26 ml/min 05/17/19 04:36 14 % 05/17/19 04:36 Glucose 136 mg/dL (65-100) H 05/17/19 04:36 Calcium 8.9 mg/dL (8.4-10.2) 05/17/19 04:36 Magnesium 2.30 mg/dL (1.7-2.3) 05/15/19 17:48 < 0.20 mg/dL (0.1-1.2) 05/16/19 04:53 AST 11 units/L (5-40) 05/16/19 04:53 ALT 9 units/L (7-56) 05/16/19 04:53 75 units/L (35-129) 05/16/19 04:53 < 0.010 ng/mL (0.00-0.029) 05/15/19 20:36 NT-Pro-B Natriuret Pep 428.7 pg/mL (0-900) 05/15/19 16:15 6.5 g/dL (6.3-8.2) 05/16/19 04:53 3.3 g/dL (3.9-5) L 05/16/19 04:53 1.0 % 05/16/19 04:53 Triglycerides 100 mg/dL (2-149) 05/15/19 16:15 Cholesterol 304 mg/dL (50-199) H 05/15/19 16:15 228 mg/dL (50-130) H 05/15/19 16:15 56 mg/dL (40-59) 05/15/19 16:15 5.42 % 05/15/19 16:15 TSH 1.610 mlU/mL (0.270-4.200) 05/15/19 17:48 Free T4 1.03 ng/dL (0.76-1.46) 05/15/19 17:48 Active Medications - Current Medications Current Medications: Generic Name Dose Route Start Last Admin Trade Name Freq PRN Reason Stop Dose Admin Acetaminophen 650 mg 05/15/19 15:52 05/17/19 12:22 Tylenol PO 650 mg Q4H PRN Administration Pain MILD(1-3)/Fever >100.5/DELGADO Albuterol 2.5 mg 05/15/19 15:52 Proventil IH Q4HRT PRN Shortness Of Breath Amlodipine Besylate 5 mg 05/15/19 17:00 05/17/19 12:22 Norvasc PO 5 mg QDAY BETO Administration Aspirin 81 mg 05/17/19 10:00 05/17/19 12:22 Halfprin Ec PO 81 mg QDAY BETO Administration Famotidine 10 mg 05/15/19 22:00 05/17/19 12:23 Pepcid PO 10 mg BID BETO Administration Heparin Sodium (Porcine) 5,000 unit 05/16/19 10:00 05/17/19 12:22 Heparin SUB-Q 5,000 unit Q12HR BETO Administration Hydralazine HCl 10 mg 05/15/19 15:56 05/17/19 05:57 Apresoline IV 10 mg Q6HR PRN Administration HTN SBP>160 Sodium Chloride 1,000 mls @ 75 mls/hr 05/16/19 12:00 05/16/19 18:03 Nacl 0.9% 1000 Ml IV 75 mls/hr DIRECT BETO Administration Lactulose 20 gm 05/16/19 22:00 05/17/19 12:22 Cephulac PO 20 gm BID BETO Administration Morphine Sulfate 2 mg 05/15/19 15:52 05/17/19 05:58 Morphine IV 2 mg Q4H PRN Administration Pain, Moderate (4-6) Nitroglycerin 0.4 mg 05/15/19 15:52 05/17/19 12:21 Nitrostat SL 0.4 mg Q5M PRN Administration Chest Pain Ondansetron HCl 4 mg 05/15/19 15:52 Zofran IV Q8H PRN Nausea And Vomiting Oxycodone/Acetaminophen 1 tab 05/17/19 13:00 05/17/19 13:02 Percocet 5/325 PO 1 tab Q6H PRN Administration Pain, Moderate (4-6) Pravastatin Sodium 20 mg 05/15/19 22:00 05/16/19 21:58 Pravachol PO 20 mg QHS BETO Administration Sodium Chloride 10 ml 05/15/19 22:00 05/17/19 12:23 Sodium Chloride Flush Syringe 10 Ml IV 10 ml BID BETO Administration Sodium Chloride 10 ml 05/15/19 15:52 05/17/19 00:27 Sodium Chloride Flush Syringe 10 Ml IV 10 ml PRN PRN Administration LINE FLUSH Sodium Chloride 10 ml 05/15/19 15:52 Sodium Chloride Flush Syringe 10 Ml IV PRN PRN LINE FLUSH
[2019-05-17] MEDS ORDERED: NORVASC PO ONE (17:46)
--- NOTE | 2019-05-17 18:12 | Event Note ---
Date: 05/17/19 Lexiscan thallium stress test was performed, reveals normal myocardial perfusion, normal Lexiscan stress test.
[2019-05-17] MEDS: PRAVACHOL PO SCH (22:34)
--- NOTE | 2019-05-18 00:59 | Treadmill Report ---
LEFT VENTRICLE: Left ventricular chamber size is within normal spread. Perfusion study demonstrates homogeneous uptake of the tracer in all segments, no significant defects identified. Gated analysis demonstrates normal left ventricular systolic function, ejection fraction 56%. CONCLUSION: Normal myocardial perfusion study. [facility]# [id number] [place]/NTS
[2019-05-18] MEDS: NACL 0.9% 1000 ML 1,000 ML IV SCH ×2 (01:47→15:36)
[2019-05-18 04:37] LABS: Bacteria,Urine 1+ /HPF (Negative); Bilirubin,Urine NEG (Negative); Blood,Urine NEG (Negative); Color,Urine Yellow (Yellow); Urobilinogen,Urine < 2.0 mg/dL (<2.0)
[2019-05-18 04:42] LABS: Creatinine,Urine 76.7 mg/dL (0.1-20.0)
[2019-05-18 04:45] LABS: WBC,Urine > 182.0 /HPF (0.0-6.0)
[2019-05-18 05:04] LABS: Protein/Creatinine Ratio,Urine 1.13
[2019-05-18 06:34] LABS: Calcium 8.5 mg/dL (8.4-10.2)
[2019-05-18] MEDS: PERCOCET 5/325 PO PRN ×3 (08:27→22:23)
--- NOTE | 2019-05-18 09:04 | Consultation ---
History of Present Illness - Reason for Consult Consult date: 05/18/19 acute renal failure - History of Present Illness Mrs. Boo is a 64yo with hypertension and DM who presented to the ED with chest pain. She reports a six day hx of intermittent, aching chest pain located under left breast and radiating to back. She denies associated symptoms: SOB, nausea/vomiting, diaphoresis. She is a poor historian but reports a 10 year hx of hypertension and DM. She reports that she has not seen a healthcare provider since 2017. Past History Past Medical History: diabetes, hypertension, hyperlipidemia, other (MO, Obesity Hypoventilation.) Past Surgical History: No surgical history, Other (reviewed) Social history: single. denies: smoking, alcohol abuse, prescription drug abuse Family history: diabetes, hypertension Medications and Allergies Allergies Allergy/AdvReac Type Severity Reaction Status Date / Time No Known Allergies Allergy Verified 05/15/19 15:24 Home Medications Medication Instructions Recorded Confirmed Last Taken Type No Known Home Medications [No 05/15/19 05/15/19 Unknown History Reported Home Medications] Active Meds: Active Medications Acetaminophen (Tylenol) 650 mg PO Q4H PRN PRN Reason: Pain MILD(1-3)/Fever >100.5/DELGADO Last Admin: 05/17/19 12:22 Dose: 650 mg Documented by: Albuterol (Proventil) 2.5 mg IH Q4HRT PRN PRN Reason: Shortness Of Breath Amlodipine Besylate (Norvasc) 10 mg PO QDAY [facility] Aspirin (Halfprin Ec) 81 mg PO QDAY [facility] Last Admin: 05/17/19 12:22 Dose: 81 mg Documented by: Famotidine (Pepcid) 10 mg PO BID [facility] Last Admin: 05/17/19 22:33 Dose: 10 mg Documented by: Heparin Sodium (Porcine) (Heparin) 5,000 unit SUB-Q Q12HR [facility] Last Admin: 05/17/19 22:34 Dose: 5,000 unit Documented by: Hydralazine HCl (Apresoline) 10 mg IV Q6HR PRN PRN Reason: HTN SBP>160 Last Admin: 05/17/19 20:23 Dose: 10 mg Documented by: Sodium Chloride (Nacl 0.9% 1000 Ml) 1,000 mls @ 75 mls/hr IV DIRECT [facility] Last Admin: 05/18/19 01:47 Dose: 75 mls/hr Documented by: Lactulose (Cephulac) 20 gm PO BID [facility] Last Admin: 05/17/19 22:34 Dose: 20 gm Documented by: Morphine Sulfate (Morphine) 2 mg IV Q4H PRN PRN Reason: Pain, Moderate (4-6) Last Admin: 05/17/19 05:58 Dose: 2 mg Documented by: Nitroglycerin (Nitrostat) 0.4 mg SL Q5M PRN PRN Reason: Chest Pain Last Admin: 05/17/19 12:21 Dose: 0.4 mg Documented by: Ondansetron HCl (Zofran) 4 mg IV Q8H PRN PRN Reason: Nausea And Vomiting Oxycodone/Acetaminophen (Percocet 5/325) 1 tab PO Q6H PRN PRN Reason: Pain, Moderate (4-6) Last Admin: 05/18/19 08:27 Dose: 1 tab Documented by: Pravastatin Sodium (Pravachol) 20 mg PO QHS [facility] Last Admin: 05/17/19 22:34 Dose: 20 mg Documented by: Sodium Chloride (Sodium Chloride Flush Syringe 10 Ml) 10 ml IV BID [facility] Last Admin: 05/17/19 22:36 Dose: Not Given Documented by: Sodium Chloride (Sodium Chloride Flush Syringe 10 Ml) 10 ml IV PRN PRN PRN Reason: LINE FLUSH Last Admin: 05/17/19 00:27 Dose: 10 ml Documented by: Sodium Chloride (Sodium Chloride Flush Syringe 10 Ml) 10 ml IV PRN PRN PRN Reason: LINE FLUSH Last Admin: 05/17/19 20:23 Dose: 10 ml Documented by: Review of Systems All systems: negative Ears, nose, mouth and throat: no epistaxis Cardiovascular: no leg edema Respiratory: no cough, no hemoptysis Genitourinary Female: no dysuria, no urinary frequency, no hematuria, no nocturia Exam - Vital Signs Vital signs: Vital Signs Temp Pulse Resp BP Pulse Ox 97.9 F 78 18 200/85 100 05/15/19 14:03 05/15/19 14:03 05/15/19 14:03 05/15/19 14:03 05/15/19 14:03 - General Appearance General appearance: well-developed, well-nourished EENT: ATNC Respiratory: Clear to Ascultation, Normal Exam Heart: regular, S1S2 Gastrointestinal: Present: normal. Absent: tenderness, distended Integumentary: no rash, warm and dry Musculoskeletal: Present: other (no edema) Psychiatric: cooperative Results - Lab Results 05/17/19 04:36 05/18/19 05:03 Most recent lab results Calcium 8.5 mg/dL (8.4-10.2) 05/18/19 05:03 Magnesium 2.30 mg/dL (1.7-2.3) 05/15/19 17:48 76.7 mg/dL (0.1-20.0) H 05/18/19 04:07 96 mmol/L 05/18/19 04:07 87 mg/dL (5-11.8) H 05/18/19 04:07 Assessment and Plan Impression: * Acute kidney injury vs underlying chronic kidney disease secondary to HTN/DM * Chest pain * UTI * Hypertension * Type II DM Plan: * Renal function is stable. Given hx of hypertension and DM (untreated since 2017 per patient), patient likely has underlying CKD * Renal u/s reviewed * Serologies ordered and pending * UA noted; urine cx ordered * Start Rocephin * Cardiology evaluation in progress - for stress test today * Avoid potential nephrotoxins * Dose medications for renal function
[2019-05-18] MEDS: CEPHULAC PO SCH ×2 (09:47→22:23)
[2019-05-18] MEDS: HALFPRIN EC PO SCH (09:48)
[2019-05-18] MEDS: PEPCID PO SCH ×2 (09:48→22:23)
[2019-05-18] MEDS: NORVASC PO SCH (09:48)
[2019-05-18] MEDS: HEPARIN SUB-Q SCH ×2 (09:48→22:23)
[2019-05-18] MEDS: SODIUM CHLORIDE FLUSH SYRINGE 10 ML IV SCH ×2 (09:50→22:23)
[2019-05-18] MEDS: ROCEPHIN/NS 1 GM/50 ML 1 GM/50 ML BAG IV SCH (11:10)
--- NOTE | 2019-05-18 13:33 | Progress Note ---
Assessment and Plan Atypical chest pain No ischemic ECG changes Negative troponin x 3 Negative CXR Negative BNP Normal MPI this admission Normal LVEF by echo Uncontrolled type II DM Hyperlipidemia LDL 228 Acute on chronic renal failure Bilateral adrenal masses on CT Recommend: No further cardiac workup indicated. We will follow intermittently. Subjective Date of service: 05/18/19 Interval history: Patient denies chest pain and shortness of breath. Objective Vital Signs Temp Pulse Resp BP Pulse Ox 05/18/19 11:40 122.0 F H 62 20 100 05/18/19 11:37 69 99 05/18/19 11:30 87 05/18/19 09:48 172/76 05/18/19 08:25 99.0 F 85 16 172/76 97 05/18/19 04:00 98.0 F 93 H 18 155/67 99 05/18/19 03:00 89 05/18/19 00:11 91 H 05/18/19 00:08 20 164/54 05/17/19 23:41 98.0 F 94 H 18 210/71 100 05/17/19 22:32 194/62 05/17/19 20:23 100 H 221/87 05/17/19 19:38 86 05/17/19 19:24 99.5 F 86 18 221/87 98 05/17/19 18:05 162/50 05/17/19 16:49 98.7 F 18 162/50 - Physical Examination General: No Apparent Distress HEENT: Positive: PERRL Neck: Positive: neck supple Cardiac: Positive: Reg Rate and Rhythm Lungs: Positive: Decreased Breath Sounds Neuro: Positive: Grossly Intact Abdomen: Positive: Soft - Labs and Meds Comprehensive Metabolic Panel 05/18/19 Range/Units 05:03 Sodium 138 (137-145) mmol/L Potassium 4.3 (3.6-5.0) mmol/L Chloride 105.5 (98-107) mmol/L Carbon Dioxide 23 (22-30) mmol/L BUN 30 H (7-17) mg/dL Creatinine 2.0 H (0.7-1.2) mg/dL Glucose 147 H (65-100) mg/dL Calcium 8.5 (8.4-10.2) mg/dL
--- NOTE | 2019-05-18 17:40 | Progress Note ---
Assessment and Plan Assessment and plan: Patient is a 64 yo woman with MO, HTN, HLD, DM type 2 and Obesity Hyperventilation who present to ED with chest pains. No ischemic ECG changes Negative troponin x 3 Negative CXR Negative BNP Normal MPI this admission Normal LVEF by echo -UTI: iv rocephin started, urine culture pending -Atypical chest pain secondary to costochondritis as a result of hypertensive disease; Cardiology input noted. Stress test result negative -Hypertensive urgency, malignant: Monitor BP q shift, IV hydralazine prn, initiate therapy with Amlodipine and will adjust upward to 10mg daily and HCTZ, -Obesity hypoventilation syndrome: NIPPV as clinically indicated, supplemental oxygen, nebulizer therapy. -HLD (hyperlipidemia): statin therapy, low cholesterol diet, Result on lipids test discussed with patient -MARISELA (acute kidney injury)/CKD 3 most likely, atn+vasomotor nephrology, poa: Continue IVF resuscitation therapy, monitor uop q shift, repeat bmp in am, Renal ultrasound reviewed no acute pathology noted, Renal us- NORMAL, Nephrology consult -Uncontrolled Non-insulin dependent type 2 diabetes mellitus: ADA diet, insulin, accu check, hyoglycemia protocol. -Noncompliance with medication regimen: Pt counseled regarding medication compliance, -ADRENAL enlargement: Plan for outpatient endocrinology eval. Patient verbalized understanding, will arrange with PCP -DVT prophylaxis: SCD to BLE while in bed, prophylactic heparin History Interval history: Patient was seen and examined. Follow-up on current diagnosis of UTI. No overnight events reported to me. Patient denies any chest pain, shortness breath, nausea/vomiting or severe headaches. Imaging, nursing note, chart, labs and old chart reviewed. Discussed with patient. Hospitalist Physical - Physical exam Narrative exam: Gen: WDWN, NAD, Awake, Alert, Orientated HEENT: NCAT, EOMI, PERRL, OP Clear Neck: supple, no adenopathy, no thyromegaly, no JVD CVS/Heart: RRR, normal S1S2, pulses present bilaterally Chest/Lungs: CTA B, Symmetrical chest expansion, good air entry bilaterally GI/Abdomen: soft, NTND, good bowel sounds, no guarding or rebound /Bladder: no suprapubic tenderness, no CVA or paraspinal tenderness Extermity/Skin: no c/c/e, no obvious rash MSK: FROM x 4 Neuro: CN 2-12 grossly intact, no new focal deficits Psych: calm - Constitutional Vitals: Temp Pulse Resp BP Pulse Ox 122.0 F H 62 20 172/76 100 05/18/19 11:40 05/18/19 11:40 05/18/19 11:40 05/18/19 09:48 05/18/19 11:40 General appearance: Present: no acute distress Results - Labs CBC & Chem 7: 05/17/19 04:36 05/18/19 05:03 Labs: Laboratory Last Values WBC 6.6 K/mm3 (4.5-11.0) 05/17/19 04:36 RBC 3.63 M/mm3 (3.65-5.03) L 05/17/19 04:36 Hgb 11.1 gm/dl (10.1-14.3) 05/17/19 04:36 Hct 33.1 % (30.3-42.9) 05/17/19 04:36 MCV 91 fl (79-97) 05/17/19 04:36 MCH 31 pg (28-32) 05/17/19 04:36 MCHC 34 % (30-34) 05/17/19 04:36 RDW 13.2 % (13.2-15.2) 05/17/19 04:36 Plt Count 254 K/mm3 (140-440) 05/17/19 04:36 Lymph % (Auto) 35.1 % (13.4-35.0) H 05/15/19 14:16 [place] % (Auto) 10.3 % (0.0-7.3) H 05/15/19 14:16 Eos % (Auto) 5.4 % (0.0-4.3) H 05/15/19 14:16 Baso % (Auto) 0.5 % (0.0-1.8) 05/15/19 14:16 Lymph # 2.9 K/mm3 (1.2-5.4) 05/15/19 14:16 Andrews # 0.9 K/mm3 (0.0-0.8) H 05/15/19 14:16 Eos # 0.4 K/mm3 (0.0-0.4) 05/15/19 14:16 Baso # 0.0 K/mm3 (0.0-0.1) 05/15/19 14:16 Seg Neutrophils % 48.7 % (40.0-70.0) 05/15/19 14:16 Seg Neutrophils # 4.0 K/mm3 (1.8-7.7) 05/15/19 14:16 PT 13.6 Sec. (12.2-14.9) 05/15/19 14:16 INR 1.07 (0.87-1.13) 05/15/19 14:16 APTT 29.3 Sec. (24.2-36.6) 05/15/19 14:16 Sodium 138 mmol/L (137-145) 05/18/19 05:03 Potassium 4.3 mmol/L (3.6-5.0) 05/18/19 05:03 Chloride 105.5 mmol/L (98-107) 05/18/19 05:03 Carbon Dioxide 23 mmol/L (22-30) 05/18/19 05:03 14 mmol/L 05/18/19 05:03 BUN 30 mg/dL (7-17) H 05/18/19 05:03 2.0 mg/dL (0.7-1.2) H 05/18/19 05:03 Estimated GFR 30 ml/min 05/18/19 05:03 15 % 05/18/19 05:03 Glucose 147 mg/dL (65-100) H 05/18/19 05:03 Calcium 8.5 mg/dL (8.4-10.2) 05/18/19 05:03 Magnesium 2.30 mg/dL (1.7-2.3) 05/15/19 17:48 < 0.20 mg/dL (0.1-1.2) 05/16/19 04:53 AST 11 units/L (5-40) 05/16/19 04:53 ALT 9 units/L (7-56) 05/16/19 04:53 75 units/L (35-129) 05/16/19 04:53 < 0.010 ng/mL (0.00-0.029) 05/15/19 20:36 NT-Pro-B Natriuret Pep 428.7 pg/mL (0-900) 05/15/19 16:15 6.5 g/dL (6.3-8.2) 05/16/19 04:53 3.3 g/dL (3.9-5) L 05/16/19 04:53 1.0 % 05/16/19 04:53 Triglycerides 100 mg/dL (2-149) 05/15/19 16:15 Cholesterol 304 mg/dL (50-199) H 05/15/19 16:15 228 mg/dL (50-130) H 05/15/19 16:15 56 mg/dL (40-59) 05/15/19 16:15 5.42 % 05/15/19 16:15 TSH 1.610 mlU/mL (0.270-4.200) 05/15/19 17:48 Free T4 1.03 ng/dL (0.76-1.46) 05/15/19 17:48 Yellow (Yellow) 05/18/19 04:07 Slightly-cloudy (Clear) 05/18/19 04:07 6.0 (5.0-7.0) 05/18/19 04:07 Ur Specific [place] 1.011 (1.003-1.030) 05/18/19 04:07 100 mg/dl mg/dL (Negative) 05/18/19 04:07 Neg mg/dL (Negative) 05/18/19 04:07 Neg mg/dL (Negative) 05/18/19 04:07 Neg (Negative) 05/18/19 04:07 Neg (Negative) 05/18/19 04:07 Neg (Negative) 05/18/19 04:07 < 2.0 mg/dL (<2.0) 05/18/19 04:07 Ur Leukocyte Esterase Lg (Negative) 05/18/19 04:07 > 182.0 /HPF (0.0-6.0) H 05/18/19 04:07 4.0 /HPF (0.0-6.0) 05/18/19 04:07 U Epithel Cells (Auto) 1.0 /HPF (0-13.0) 05/18/19 04:07 1+ /HPF (Negative) 05/18/19 04:07 76.7 mg/dL (0.1-20.0) H 05/18/19 04:07 Protein/Creatinin Ratio 1.13 05/18/19 04:07 96 mmol/L 05/18/19 04:07 87 mg/dL (5-11.8) H 05/18/19 04:07 Active Medications - Current Medications Current Medications: Generic Name Dose Route Start Last Admin Trade Name Freq PRN Reason Stop Dose Admin Acetaminophen 650 mg 05/15/19 15:52 05/17/19 12:22 Tylenol PO 650 mg Q4H PRN Administration Pain MILD(1-3)/Fever >100.5/DELGADO Albuterol 2.5 mg 05/15/19 15:52 Proventil IH Q4HRT PRN Shortness Of Breath Amlodipine Besylate 10 mg 05/18/19 10:00 05/18/19 09:48 Norvasc PO 10 mg QDAY BETO Administration Aspirin 81 mg 05/17/19 10:00 05/18/19 09:48 Halfprin Ec PO 81 mg QDAY BETO Administration Famotidine 10 mg 05/15/19 22:00 05/18/19 09:48 Pepcid PO 10 mg BID BETO Administration Heparin Sodium (Porcine) 5,000 unit 05/16/19 10:00 05/18/19 09:48 Heparin SUB-Q 5,000 unit Q12HR BETO Administration Hydralazine HCl 10 mg 05/15/19 15:56 05/17/19 20:23 Apresoline IV 10 mg Q6HR PRN Administration HTN SBP>160 Sodium Chloride 1,000 mls @ 75 mls/hr 05/16/19 12:00 05/18/19 15:36 Nacl 0.9% 1000 Ml IV 75 mls/hr DIRECT BETO Administration Ceftriaxone Sodium 1 gm in 50 mls @ 100 mls/hr 05/18/19 10:00 05/18/19 11:10 Rocephin/Ns 1 Gm/50 Ml IV 100 mls/hr Q24HR BETO Administration Protocol Lactulose 20 gm 05/16/19 22:00 05/18/19 09:47 Cephulac PO 20 gm BID BETO Administration Morphine Sulfate 2 mg 05/15/19 15:52 05/17/19 05:58 Morphine IV 2 mg Q4H PRN Administration Pain, Moderate (4-6) Nitroglycerin 0.4 mg 05/15/19 15:52 05/17/19 12:21 Nitrostat SL 0.4 mg Q5M PRN Administration Chest Pain Ondansetron HCl 4 mg 05/15/19 15:52 Zofran IV Q8H PRN Nausea And Vomiting Oxycodone/Acetaminophen 1 tab 05/17/19 13:00 05/18/19 15:20 Percocet 5/325 PO 1 tab Q6H PRN Administration Pain, Moderate (4-6) Pravastatin Sodium 20 mg 05/15/19 22:00 05/17/19 22:34 Pravachol PO 20 mg QHS BETO Administration Sodium Chloride 10 ml 05/15/19 22:00 05/18/19 09:50 Sodium Chloride Flush Syringe 10 Ml IV 10 ml BID BETO Administration Sodium Chloride 10 ml 05/15/19 15:52 05/17/19 00:27 Sodium Chloride Flush Syringe 10 Ml IV 10 ml PRN PRN Administration LINE FLUSH
[2019-05-18] MEDS: PRAVACHOL PO SCH (22:23)
[2019-05-19] MEDS: NACL 0.9% 1000 ML 1,000 ML IV SCH ×2 (03:37→20:05)
[2019-05-19] MEDS: PERCOCET 5/325 PO PRN ×3 (04:55→21:59)
[2019-05-19] MEDS ORDERED: DULCOLAX PR PRN (10:00)
[2019-05-19] MEDS: NORVASC PO SCH (10:24)
[2019-05-19] MEDS: COLACE PO SCH ×2 (10:24→21:58)
[2019-05-19] MEDS: CEPHULAC PO SCH ×2 (10:24→21:58)
[2019-05-19] MEDS: PEPCID PO SCH ×2 (10:24→21:58)
[2019-05-19] MEDS: HEPARIN SUB-Q SCH ×2 (10:25→21:59)
[2019-05-19] MEDS: HALFPRIN EC PO SCH (10:25)
[2019-05-19] MEDS: ROCEPHIN/NS 1 GM/50 ML 1 GM/50 ML BAG IV SCH (10:25)
[2019-05-19] MEDS: SODIUM CHLORIDE FLUSH SYRINGE 10 ML IV SCH ×2 (10:26→22:00)
[2019-05-19] MEDS: MORPHINE IV PRN (11:39)
[2019-05-19] MEDS ORDERED: DULCOLAX PR ONE (12:30)
--- NOTE | 2019-05-19 17:07 | Progress Note ---
Assessment and Plan Assessment and plan: Patient is a 64 yo woman with MO, HTN, HLD, DM type 2 and Obesity Hyperventilation who present to ED with chest pains. No ischemic ECG changes Negative troponin x 3 Negative CXR Negative BNP Normal MPI this admission Normal LVEF by echo -UTI: iv rocephin started, urine culture pending -Atypical chest pain secondary to costochondritis as a result of hypertensive disease; Cardiology input noted. Stress test result negative -Hypertensive urgency, malignant: Monitor BP q shift, IV hydralazine prn, initiate therapy with Amlodipine and will adjust upward to 10mg daily and HCTZ, -Obesity hypoventilation syndrome: NIPPV as clinically indicated, supplemental oxygen, nebulizer therapy. -HLD (hyperlipidemia): statin therapy, low cholesterol diet, Result on lipids test discussed with patient -MARISELA (acute kidney injury)/CKD 3 most likely, atn+vasomotor nephrology, poa: Continue IVF resuscitation therapy, monitor uop q shift, repeat bmp in am, Renal ultrasound reviewed no acute pathology noted, Renal us- NORMAL, Nephrology consult -Uncontrolled Non-insulin dependent type 2 diabetes mellitus: ADA diet, insulin, accu check, hyoglycemia protocol. -Noncompliance with medication regimen: Pt counseled regarding medication compliance, -ADRENAL enlargement: Plan for outpatient endocrinology eval. Patient verbalized understanding, will arrange with PCP -DVT prophylaxis: SCD to BLE while in bed, prophylactic heparin Disposition: continue inpatient care, await Urine ctx which is growing out GNR. Also she had recurrent left sided chest pains, ordered stat EKG, mainly unchanged, stat troponin pending. History Interval history: Patient was seen and examined. Follow-up on current diagnosis of UTI. No overnight events reported to me. Patient denies any shortness breath, nausea/vomiting or severe headaches. Imaging, nursing note, chart, labs and old chart reviewed. Discussed with patient. She had left sided chest pains today. Hospitalist Physical - Physical exam Narrative exam: Gen: WDWN, NAD, Awake, Alert, Orientated HEENT: NCAT, EOMI, PERRL, OP Clear Neck: supple, no adenopathy, no thyromegaly, no JVD CVS/Heart: RRR, normal S1S2, pulses present bilaterally Chest/Lungs: CTA B, Symmetrical chest expansion, good air entry bilaterally, reproducible chest wall tenderness GI/Abdomen: soft, NTND, good bowel sounds, no guarding or rebound /Bladder: no suprapubic tenderness, no CVA or paraspinal tenderness Extermity/Skin: no c/c/e, no obvious rash MSK: FROM x 4 Neuro: CN 2-12 grossly intact, no new focal deficits Psych: calm - Constitutional Vitals: Temp Pulse Resp BP Pulse Ox 99.0 F 84 18 205/85 100 05/19/19 12:13 05/19/19 12:13 05/19/19 12:13 05/19/19 12:13 05/19/19 12:13 General appearance: Present: no acute distress Results - Labs CBC & Chem 7: 05/17/19 04:36 05/18/19 05:03 Labs: Laboratory Last Values WBC 6.6 K/mm3 (4.5-11.0) 05/17/19 04:36 RBC 3.63 M/mm3 (3.65-5.03) L 05/17/19 04:36 Hgb 11.1 gm/dl (10.1-14.3) 05/17/19 04:36 Hct 33.1 % (30.3-42.9) 05/17/19 04:36 MCV 91 fl (79-97) 05/17/19 04:36 MCH 31 pg (28-32) 05/17/19 04:36 MCHC 34 % (30-34) 05/17/19 04:36 RDW 13.2 % (13.2-15.2) 05/17/19 04:36 Plt Count 254 K/mm3 (140-440) 05/17/19 04:36 Lymph % (Auto) 35.1 % (13.4-35.0) H 05/15/19 14:16 [place] % (Auto) 10.3 % (0.0-7.3) H 05/15/19 14:16 Eos % (Auto) 5.4 % (0.0-4.3) H 05/15/19 14:16 Baso % (Auto) 0.5 % (0.0-1.8) 05/15/19 14:16 Lymph # 2.9 K/mm3 (1.2-5.4) 05/15/19 14:16 [place] # 0.9 K/mm3 (0.0-0.8) H 05/15/19 14:16 Eos # 0.4 K/mm3 (0.0-0.4) 05/15/19 14:16 Baso # 0.0 K/mm3 (0.0-0.1) 05/15/19 14:16 Seg Neutrophils % 48.7 % (40.0-70.0) 05/15/19 14:16 Seg Neutrophils # 4.0 K/mm3 (1.8-7.7) 05/15/19 14:16 PT 13.6 Sec. (12.2-14.9) 05/15/19 14:16 INR 1.07 (0.87-1.13) 05/15/19 14:16 APTT 29.3 Sec. (24.2-36.6) 05/15/19 14:16 Sodium 138 mmol/L (137-145) 05/18/19 05:03 Potassium 4.3 mmol/L (3.6-5.0) 05/18/19 05:03 Chloride 105.5 mmol/L (98-107) 05/18/19 05:03 Carbon Dioxide 23 mmol/L (22-30) 05/18/19 05:03 14 mmol/L 05/18/19 05:03 BUN 30 mg/dL (7-17) H 05/18/19 05:03 2.0 mg/dL (0.7-1.2) H 05/18/19 05:03 Estimated GFR 30 ml/min 05/18/19 05:03 15 % 05/18/19 05:03 Glucose 147 mg/dL (65-100) H 05/18/19 05:03 POC Glucose 155 (70-105) H 05/19/19 12:20 Calcium 8.5 mg/dL (8.4-10.2) 05/18/19 05:03 Magnesium 2.30 mg/dL (1.7-2.3) 05/15/19 17:48 < 0.20 mg/dL (0.1-1.2) 05/16/19 04:53 AST 11 units/L (5-40) 05/16/19 04:53 ALT 9 units/L (7-56) 05/16/19 04:53 75 units/L (35-129) 05/16/19 04:53 < 0.010 ng/mL (0.00-0.029) 05/15/19 20:36 NT-Pro-B Natriuret Pep 428.7 pg/mL (0-900) 05/15/19 16:15 6.5 g/dL (6.3-8.2) 05/16/19 04:53 3.3 g/dL (3.9-5) L 05/16/19 04:53 1.0 % 05/16/19 04:53 Triglycerides 100 mg/dL (2-149) 05/15/19 16:15 Cholesterol 304 mg/dL (50-199) H 05/15/19 16:15 228 mg/dL (50-130) H 05/15/19 16:15 56 mg/dL (40-59) 05/15/19 16:15 5.42 % 05/15/19 16:15 TSH 1.610 mlU/mL (0.270-4.200) 05/15/19 17:48 Free T4 1.03 ng/dL (0.76-1.46) 05/15/19 17:48 Yellow (Yellow) 05/18/19 04:07 Slightly-cloudy (Clear) 05/18/19 04:07 6.0 (5.0-7.0) 05/18/19 04:07 Ur Specific [place] 1.011 (1.003-1.030) 05/18/19 04:07 100 mg/dl mg/dL (Negative) 05/18/19 04:07 Neg mg/dL (Negative) 05/18/19 04:07 Neg mg/dL (Negative) 05/18/19 04:07 Neg (Negative) 05/18/19 04:07 Neg (Negative) 05/18/19 04:07 Neg (Negative) 05/18/19 04:07 < 2.0 mg/dL (<2.0) 05/18/19 04:07 Ur Leukocyte Esterase Lg (Negative) 05/18/19 04:07 > 182.0 /HPF (0.0-6.0) H 05/18/19 04:07 4.0 /HPF (0.0-6.0) 05/18/19 04:07 U Epithel Cells (Auto) 1.0 /HPF (0-13.0) 05/18/19 04:07 1+ /HPF (Negative) 05/18/19 04:07 76.7 mg/dL (0.1-20.0) H 05/18/19 04:07 Protein/Creatinin Ratio 1.13 05/18/19 04:07 96 mmol/L 05/18/19 04:07 87 mg/dL (5-11.8) H 05/18/19 04:07 Active Medications - Current Medications Current Medications: Generic Name Dose Route Start Last Admin Trade Name Freq PRN Reason Stop Dose Admin Acetaminophen 650 mg 05/15/19 15:52 05/17/19 12:22 Tylenol PO 650 mg Q4H PRN Administration Pain MILD(1-3)/Fever >100.5/DELGADO Albuterol 2.5 mg 05/15/19 15:52 Proventil IH Q4HRT PRN Shortness Of Breath Amlodipine Besylate 10 mg 05/18/19 10:00 05/19/19 10:24 Norvasc PO 10 mg QDAY BETO Administration Aspirin 81 mg 05/17/19 10:00 05/19/19 10:25 Halfprin Ec PO 81 mg QDAY BETO Administration Docusate Sodium 100 mg 05/19/19 10:00 05/19/19 10:24 Colace PO 100 mg BID BETO Administration Famotidine 10 mg 05/15/19 22:00 05/19/19 10:24 Pepcid PO 10 mg BID BETO Administration Heparin Sodium (Porcine) 5,000 unit 05/16/19 10:00 05/19/19 10:25 Heparin SUB-Q 5,000 unit Q12HR BETO Administration Hydralazine HCl 10 mg 05/15/19 15:56 05/17/19 20:23 Apresoline IV 10 mg Q6HR PRN Administration HTN SBP>160 Sodium Chloride 1,000 mls @ 75 mls/hr 05/16/19 12:00 05/19/19 03:37 Nacl 0.9% 1000 Ml IV 75 mls/hr DIRECT BETO Administration Ceftriaxone Sodium 1 gm in 50 mls @ 100 mls/hr 05/18/19 10:00 05/19/19 10:25 Rocephin/Ns 1 Gm/50 Ml IV 100 mls/hr Q24HR BETO Administration Protocol Lactulose 20 gm 05/16/19 22:00 05/19/19 10:24 Cephulac PO 20 gm BID BETO Administration Morphine Sulfate 2 mg 05/15/19 15:52 05/19/19 11:39 Morphine IV 2 mg Q4H PRN Administration Pain, Moderate (4-6) Nitroglycerin 0.4 mg 05/15/19 15:52 05/17/19 12:21 Nitrostat SL 0.4 mg Q5M PRN Administration Chest Pain Ondansetron HCl 4 mg 05/15/19 15:52 Zofran IV Q8H PRN Nausea And Vomiting Oxycodone/Acetaminophen 1 tab 05/17/19 13:00 05/19/19 12:47 Percocet 5/325 PO 1 tab Q6H PRN Administration Pain, Moderate (4-6) Pravastatin Sodium 20 mg 05/15/19 22:00 05/18/19 22:23 Pravachol PO 20 mg QHS BETO Administration Sodium Chloride 10 ml 05/15/19 22:00 05/19/19 10:26 Sodium Chloride Flush Syringe 10 Ml IV 10 ml BID BETO Administration Sodium Chloride 10 ml 05/15/19 15:52 05/17/19 00:27 Sodium Chloride Flush Syringe 10 Ml IV 10 ml PRN PRN Administration LINE FLUSH
--- NOTE | 2019-05-19 17:55 | Progress Note ---
Assessment and Plan Impression: * Acute kidney injury vs underlying chronic kidney disease secondary to HTN/DM * Chest pain --TTE and stress test unremarkable * GNR UTI * Hypertension * Type II DM Plan: * BMP not available or review. Patient w/ hx of hypertension and DM (untreated since 2017 per patient), patient likely has underlying CKD * Renal u/s reviewed * Follow up on pending serologies ordered and pending * Continue Rocephin; await ID/sensitivities * Cardiology recommendations noted * Avoid potential nephrotoxins * Dose medications for renal function * Labs in AM. Subjective Date of service: 05/19/19 Interval history: Patient has no complaints today Objective - Vital Signs Vital signs: Vital Signs - 12hr 05/19/19 05/19/19 05/19/19 08:14 10:24 12:00 Temperature 98.6 F Pulse Rate 77 88 Respiratory 18 Rate Blood Pressure 178/80 178/80 O2 Sat by Pulse 98 Oximetry 05/19/19 12:13 Temperature 99.0 F Pulse Rate 84 Respiratory 18 Rate Blood Pressure 205/85 O2 Sat by Pulse 100 Oximetry - General Appearance General appearance: well-developed, well-nourished EENT: ATNC Respiratory: Present: Clear to Ascultation Cardiology: regular, S1S2 Gastrointestinal: normal, normoactive bowel sounds Integumentary: no rash, warm and dry Neurologic: no focal deficit, alert and oriented x3 Psychiatric: cooperative - Lab 05/17/19 04:36 05/18/19 05:03 Most recent lab results Calcium 8.5 mg/dL (8.4-10.2) 05/18/19 05:03 Magnesium 2.30 mg/dL (1.7-2.3) 05/15/19 17:48 76.7 mg/dL (0.1-20.0) H 05/18/19 04:07 96 mmol/L 05/18/19 04:07 87 mg/dL (5-11.8) H 05/18/19 04:07 Medications & Allergies - Medications Allergies/Adverse Reactions: Allergies No Known Allergies Allergy (Verified 05/15/19 15:24) Home Medications: Home Medications Medication Instructions Recorded Confirmed Last Taken Type No Known Home Medications [No 05/15/19 05/15/19 Unknown History Reported Home Medications] Active Medications: Generic Name Dose Route Start Last Admin Trade Name Freq PRN Reason Stop Dose Admin Acetaminophen 650 mg 05/15/19 15:52 05/17/19 12:22 Tylenol PO 650 mg Q4H PRN Administration Pain MILD(1-3)/Fever >100.5/DELGADO Albuterol 2.5 mg 05/15/19 15:52 Proventil IH Q4HRT PRN Shortness Of Breath Amlodipine Besylate 10 mg 05/18/19 10:00 05/19/19 10:24 Norvasc PO 10 mg QDAY BETO Administration Aspirin 81 mg 05/17/19 10:00 05/19/19 10:25 Halfprin Ec PO 81 mg QDAY BETO Administration Docusate Sodium 100 mg 05/19/19 10:00 05/19/19 10:24 Colace PO 100 mg BID BETO Administration Famotidine 10 mg 05/15/19 22:00 05/19/19 10:24 Pepcid PO 10 mg BID BETO Administration Heparin Sodium (Porcine) 5,000 unit 05/16/19 10:00 05/19/19 10:25 Heparin SUB-Q 5,000 unit Q12HR BETO Administration Hydralazine HCl 10 mg 05/15/19 15:56 05/17/19 20:23 Apresoline IV 10 mg Q6HR PRN Administration HTN SBP>160 Sodium Chloride 1,000 mls @ 75 mls/hr 05/16/19 12:00 05/19/19 03:37 Nacl 0.9% 1000 Ml IV 75 mls/hr DIRECT BETO Administration Ceftriaxone Sodium 1 gm in 50 mls @ 100 mls/hr 05/18/19 10:00 05/19/19 10:25 Rocephin/Ns 1 Gm/50 Ml IV 100 mls/hr Q24HR BETO Administration Protocol Lactulose 20 gm 05/16/19 22:00 05/19/19 10:24 Cephulac PO 20 gm BID BETO Administration Morphine Sulfate 2 mg 05/15/19 15:52 05/19/19 11:39 Morphine IV 2 mg Q4H PRN Administration Pain, Moderate (4-6) Nitroglycerin 0.4 mg 05/15/19 15:52 05/17/19 12:21 Nitrostat SL 0.4 mg Q5M PRN Administration Chest Pain Ondansetron HCl 4 mg 05/15/19 15:52 Zofran IV Q8H PRN Nausea And Vomiting Oxycodone/Acetaminophen 1 tab 05/17/19 13:00 05/19/19 12:47 Percocet 5/325 PO 1 tab Q6H PRN Administration Pain, Moderate (4-6) Pravastatin Sodium 20 mg 05/15/19 22:00 05/18/19 22:23 Pravachol PO 20 mg QHS BETO Administration Sodium Chloride 10 ml 05/15/19 22:00 05/19/19 10:26 Sodium Chloride Flush Syringe 10 Ml IV 10 ml BID BETO Administration Sodium Chloride 10 ml 05/15/19 15:52 05/17/19 00:27 Sodium Chloride Flush Syringe 10 Ml IV 10 ml PRN PRN Administration LINE FLUSH
[2019-05-19] MEDS: PRAVACHOL PO SCH (21:58)
[2019-05-19] MEDS: APRESOLINE IV PRN (22:17)
[2019-05-20] MEDS: PERCOCET 5/325 PO PRN ×2 (05:47→15:00)
[2019-05-20 07:51] LABS: BUN/Creatinine Ratio TNR; Blood Urea Nitrogen TNR mg/dL (7-17); Calcium TNR mg/dL (8.4-10.2)
[2019-05-20 07:52] LABS: Hemolysis Index TNR
[2019-05-20 08:46] LABS: Calcium 8.6 mg/dL (8.4-10.2)
[2019-05-20] MEDS: HALFPRIN EC PO SCH (09:40)
--- NOTE | 2019-05-20 09:40 | Progress Note ---
Assessment and Plan Impression: * Acute kidney injury vs underlying chronic kidney disease secondary to HTN/DM * Chest pain --TTE and stress test unremarkable * Klebsiella UTI * Hypertension * Type II DM * Proteinuria, sub nephrotic (UPCR 1.13g) Plan: * Renal function improved - SCr 1.5mg/dL; Baseline unknown. Patient w/ hx of hypertension and DM (untreated since 2017 per patient), patient likely has underlying CKD * Start Coreg. Continue Amlodipine * Renal u/s reviewed * Follow up on pending serologies as outpatient * Will stop Rocephin and start Levaquin x 5 additional days * Cardiology recommendations noted * Avoid potential nephrotoxins * Dose medications for renal function * Stable for d/c from a renal standpoint. Follow up with [facility] in 2 weeks Subjective Date of service: 05/20/19 Interval history: Patient has no complaints today Objective - Vital Signs Vital signs: Vital Signs - 12hr 05/19/19 05/19/19 05/20/19 22:17 23:29 04:26 Temperature 97.8 F 98.1 F Pulse Rate 76 84 83 Respiratory 18 18 Rate Blood Pressure 174/59 151/55 167/70 O2 Sat by Pulse 96 100 Oximetry 05/20/19 07:45 Temperature 98.7 F Pulse Rate Respiratory 18 Rate Blood Pressure 137/52 O2 Sat by Pulse Oximetry - General Appearance General appearance: well-developed, well-nourished EENT: ATNC Respiratory: Present: Clear to Ascultation Cardiology: regular, S1S2 Gastrointestinal: normal, no tenderness, no distended Integumentary: no rash, warm and dry Neurologic: no focal deficit Psychiatric: cooperative - Lab 05/17/19 04:36 05/20/19 08:17 Most recent lab results Calcium 8.6 mg/dL (8.4-10.2) 05/20/19 08:17 Magnesium 2.30 mg/dL (1.7-2.3) 05/15/19 17:48 76.7 mg/dL (0.1-20.0) H 05/18/19 04:07 96 mmol/L 05/18/19 04:07 87 mg/dL (5-11.8) H 05/18/19 04:07 Medications & Allergies - Medications Allergies/Adverse Reactions: Allergies No Known Allergies Allergy (Verified 05/15/19 15:24) Home Medications: Home Medications Medication Instructions Recorded Confirmed Last Taken Type No Known Home Medications [No 05/15/19 05/15/19 Unknown History Reported Home Medications] Active Medications: Generic Name Dose Route Start Last Admin Trade Name Freq PRN Reason Stop Dose Admin Acetaminophen 650 mg 05/15/19 15:52 05/17/19 12:22 Tylenol PO 650 mg Q4H PRN Administration Pain MILD(1-3)/Fever >100.5/DELGADO Albuterol 2.5 mg 05/15/19 15:52 Proventil IH Q4HRT PRN Shortness Of Breath Amlodipine Besylate 10 mg 05/18/19 10:00 05/19/19 10:24 Norvasc PO 10 mg QDAY BETO Administration Aspirin 81 mg 05/17/19 10:00 05/19/19 10:25 Halfprin Ec PO 81 mg QDAY BETO Administration Docusate Sodium 100 mg 05/19/19 10:00 05/19/19 21:58 Colace PO 100 mg BID BETO Administration Famotidine 10 mg 05/15/19 22:00 05/19/19 21:58 Pepcid PO 10 mg BID BETO Administration Heparin Sodium (Porcine) 5,000 unit 05/16/19 10:00 05/19/19 21:59 Heparin SUB-Q 5,000 unit Q12HR BETO Administration Hydralazine HCl 10 mg 05/15/19 15:56 05/19/19 22:17 Apresoline IV 10 mg Q6HR PRN Administration HTN SBP>160 Sodium Chloride 1,000 mls @ 75 mls/hr 05/16/19 12:00 05/19/19 20:05 Nacl 0.9% 1000 Ml IV 75 mls/hr DIRECT BETO Administration Ceftriaxone Sodium 1 gm in 50 mls @ 100 mls/hr 05/18/19 10:00 05/19/19 10:25 Rocephin/Ns 1 Gm/50 Ml IV 100 mls/hr Q24HR BETO Administration Protocol Lactulose 20 gm 05/16/19 22:00 05/19/19 21:58 Cephulac PO 20 gm BID BETO Administration Morphine Sulfate 2 mg 05/15/19 15:52 05/19/19 11:39 Morphine IV 2 mg Q4H PRN Administration Pain, Moderate (4-6) Nitroglycerin 0.4 mg 05/15/19 15:52 05/17/19 12:21 Nitrostat SL 0.4 mg Q5M PRN Administration Chest Pain Ondansetron HCl 4 mg 05/15/19 15:52 Zofran IV Q8H PRN Nausea And Vomiting Oxycodone/Acetaminophen 1 tab 05/17/19 13:00 05/20/19 05:47 Percocet 5/325 PO 1 tab Q6H PRN Administration Pain, Moderate (4-6) Pravastatin Sodium 20 mg 05/15/19 22:00 05/19/19 21:58 Pravachol PO 20 mg QHS BETO Administration Sodium Chloride 10 ml 05/15/19 22:00 05/19/19 22:00 Sodium Chloride Flush Syringe 10 Ml IV 10 ml BID BETO Administration Sodium Chloride 10 ml 05/15/19 15:52 05/17/19 00:27 Sodium Chloride Flush Syringe 10 Ml IV 10 ml PRN PRN Administration LINE FLUSH
[2019-05-20] MEDS: NORVASC PO SCH (09:41)
[2019-05-20] MEDS: HEPARIN SUB-Q SCH (09:41)
[2019-05-20] MEDS: PEPCID PO SCH (09:41)
[2019-05-20] MEDS: CEPHULAC PO SCH (09:41)
[2019-05-20] MEDS: COLACE PO SCH (09:41)
[2019-05-20] MEDS ORDERED: LEVAQUIN PO SCH (10:00)
[2019-05-20] MEDS ORDERED: COREG PO SCH (10:00)
[2019-05-20] MEDS: SODIUM CHLORIDE FLUSH SYRINGE 10 ML IV SCH (15:02)
--- NOTE | 2019-05-20 16:04 | Discharge Summary ---
Providers - Providers Date of Admission: 05/15/19 15:52 Date of discharge: 05/20/19 Attending physician: CLARITZA BOLTON 05/15/19 Consult to Cardiac Rehabilitation [CONS] Routine Reason For Exam: Phase I 05/17/19 09:25 Consult to Physician [CONS] Routine Comment: Consulting Provider: KARINE THOMAS Physician Instructions: Reason For Exam: marisela Primary care physician: ERVIN CEJA Hospitalization Condition: Stable Hospital course: Patient is a 64 yo woman with MO, HTN, HLD, DM type 2 and Obesity Hyperventilation who present to ED with chest pains. No ischemic ECG changes Negative troponin x 3 Negative CXR Negative BNP Normal MPI this admission Normal LVEF by echo -UTI, K. pneumoniae: iv rocephin started, urine culture noted -Atypical chest pain secondary to costochondritis as a result of hypertensive disease; Cardiology input noted. Stress test result negative -Hypertensive urgency, malignant: Monitor BP q shift, IV hydralazine prn, initiate therapy with Amlodipine and will adjust upward to 10mg daily and HCTZ, -Obesity hypoventilation syndrome: NIPPV as clinically indicated, supplemental oxygen, nebulizer therapy. -HLD (hyperlipidemia): statin therapy, low cholesterol diet, Result on lipids test discussed with patient -MARISELA (acute kidney injury)/CKD 3 most likely, atn+vasomotor nephrology, poa: Continue IVF resuscitation therapy, monitor uop q shift, repeat bmp in am, Renal ultrasound reviewed no acute pathology noted, Renal us- NORMAL, Nephrology consult -Uncontrolled Non-insulin dependent type 2 diabetes mellitus: ADA diet, insulin, accu check, hyoglycemia protocol. -Noncompliance with medication regimen: Pt counseled regarding medication compliance, -ADRENAL enlargement: Plan for outpatient endocrinology eval. Patient verbalized understanding, will arrange with PCP -DVT prophylaxis: SCD to BLE while in bed, prophylactic heparin CR down to 1.5 Disposition: DC-30 STILL A PATIENT Time spent for discharge: 36 minutes Core Measure Documentation - Palliative Care Palliative Care/ Comfort Measures: Not Applicable - Core Measures Any of the following diagnoses?: none - VTE Discharge Requirements Deep Vein Thrombosis/Pulmonary Embolism Present on Admission: No Has pt received <5 days of overlap therapy or INR<2.0: No Anticoagulant overlap therapy prescribed at discharge: No Contraindication No Overlap Therapy order at DC: Not Indicated Exam - Physical Exam Narrative exam: Gen: WDWN, NAD, Awake, Alert, Orientated HEENT: NCAT, EOMI, PERRL, OP Clear Neck: supple, no adenopathy, no thyromegaly, no JVD CVS/Heart: RRR, normal S1S2, pulses present bilaterally Chest/Lungs: CTA B, Symmetrical chest expansion, good air entry bilaterally, reproducible chest wall tenderness GI/Abdomen: soft, NTND, good bowel sounds, no guarding or rebound /Bladder: no suprapubic tenderness, no CVA or paraspinal tenderness Extermity/Skin: no c/c/e, no obvious rash MSK: FROM x 4 Neuro: CN 2-12 grossly intact, no new focal deficits Psych: calm - Constitutional Vitals: Temp Pulse Resp BP Pulse Ox 98.7 F 80 18 137/52 100 05/20/19 07:45 05/20/19 10:10 05/20/19 07:45 05/20/19 10:10 05/20/19 04:26 Plan Activity: other (no strenous activity unless cleared by PCP ) Diet: renal Follow up with: ERVIN CEJA MD [Primary Care Provider] - 7 Days KARINE THOMAS MD [Staff Physician] - 7 Days Prescriptions: RX: Pravastatin [Pravachol] 20 mg PO QHS #30 tablet RX: Carvedilol [Coreg] 6.25 mg PO BID #60 tablet RX: levoFLOXacin [Levaquin TAB] 500 mg PO Q24HR #4 tablet RX: amLODIPine [Norvasc] 10 mg PO QDAY #30 tablet RX: oxyCODONE /ACETAMINOPHEN [Percocet 5/325 mg] 1 tab PO Q6H PRN #15 tablet PRN Reason: Pain , Severe (7-10)
[2019-05-20 19:44] VITALS: BP 150/56
[2019-05-22 14:55] LABS: Albumin 3.1 g/dL (3.8-4.8); Gamma Globulin 1.3 g/dL (0.8-1.7)
[2019-05-23 19:27] LABS: Myeloperoxidase Antibody <1.0 AI (<1.0)
== END 2019-05-20 18:20 | disposition home or self-care (01) | DRG 205 ==
LOC: ED 13:49 → 4A 15:52
PROVIDERS: ADMIT Internal Medicine; ATTEND Internal Medicine
DX: M94.0 Chondrocostal junction syndrome [Tietze] (principal); I50.31 Acute diastolic (congestive) heart failure; N17.0 Acute kidney failure with tubular necrosis; I13.0 Hypertensive heart and chronic kidney disease with heart failure and stage 1 through stage 4 chronic kidney disease, or unspecified chronic kidney disease; N39.0 Urinary tract infection, site not specified; Z68.42 Body mass index [BMI] 45.0-49.9, adult; E66.2 Morbid (severe) obesity with alveolar hypoventilation; I16.0 Hypertensive urgency; E78.2 Mixed hyperlipidemia; E11.22 Type 2 diabetes mellitus with diabetic chronic kidney disease; N18.3 Chronic kidney disease, stage 3 (moderate); I20.9 Angina pectoris, unspecified; E27.9 Disorder of adrenal gland, unspecified; B96.1 Klebsiella pneumoniae [K. pneumoniae] as the cause of diseases classified elsewhere; Z91.14 Patient's other noncompliance with medication regimen
CPT/HCPCS: 36415; 71046; 74176; 76770; 78452; 80048; 80053; 80061; 81001; 82570; 82962; 83735; 83880; 84156; 84165; 84300; 84439; 84443; 84484; 85025; 85027; 85610; 85730; 86021; 86160; 87076; 87086; 87186; 93005; 93010; 93017; 93306; 94640; 96374; 96375; G0378; A9270-GY; A9502; J0360; J0696; J1644; J2270; J2405; J2785; J7030

== ENCOUNTER 2020-02-14 16:41 | Emergency (ER) | payer MEDICARE ==
[2020-02-14] MEDS ORDERED: cefTRIAXone/NS 1 GM/50 ML 1 GM/50 ML BAG IV ONE (17:11)
[2020-02-14] MEDS ORDERED: SODIUM CHLORIDE 0.9% 1000 ML 1,000 ML IV ONE (17:11)
[2020-02-14] MEDS ORDERED: dexAMETHasone 4 MG/ML VIAL IV ONE (17:12)
--- NOTE | 2020-02-14 17:12 | Emergency Department Report ---
ED General Adult HPI - General Chief complaint: Dental/Oral Stated complaint: RIGHT JAW PAIN Time Seen by Provider: 02/14/20 17:10 Source: patient Mode of arrival: Ambulatory Limitations: No Limitations - History of Present Illness Initial comments: 64 yo aa female comes to er with r side facial swelling and redness associated with diffuse dental caries of right maxillary teeth. She has no fever or chills. no trismus and is controlling secretions. She has not seen DMD. concern for facial cellultis/abscess BP elevated in triage- hx htn and non adherence ambulatory and non ill non toxic appearing. -: Gradual, days(s) Location: face Consistency: constant Improves with: none Worsens with: none Associated Symptoms: denies other symptoms Treatments Prior to Arrival: none - Related Data Previous Rx's Medication Instructions Recorded Last Taken Type ALBUTEROL NEB's [Proventil 0.083% 2.5 mg IH Q4HRT [facility] Rx NEBS] Aspirin EC [Halfprin EC] 81 mg PO QDAY #30 tablet 05/20/19 Unknown Rx Docusate Sodium [Colace CAP] 100 mg PO BID #30 capsule 05/20/19 Unknown Rx Pravastatin [Pravachol] 20 mg PO QHS #30 tablet 05/20/19 Unknown Rx amLODIPine 10 mg PO QDAY #30 tablet 05/20/19 Unknown Rx carvediloL [Coreg] 6.25 mg PO BID #60 tablet 05/20/19 Unknown Rx Clindamycin [Clindamycin CAP] 300 mg PO Q6H #40 capsule 02/14/20 Unknown Rx Allergies Allergy/AdvReac Type Severity Reaction Status Date / Time No Known Allergies Allergy Verified 05/15/19 15:24 ED Review of Systems ROS: Stated complaint: RIGHT JAW PAIN Other details as noted in HPI Comment: All other systems reviewed and negative ED Past Medical Hx - Past Medical History Previous Medical History?: Yes Hx Hypertension: Yes Hx Diabetes: Yes - Surgical History Past Surgical History?: Yes - Family History Family history: no significant - Social History Smoking Status: Never Smoker Substance Use Type: None - Medications Home Medications: Home Medications Medication Instructions Recorded Confirmed Last Taken Type ALBUTEROL NEB's [Proventil 0.083% 2.5 mg IH Q4HRT PRN nebu 05/20/19 Unknown Rx NEBS] Aspirin EC [Halfprin EC] 81 mg PO QDAY #30 tablet 05/20/19 Unknown Rx Docusate Sodium [Colace CAP] 100 mg PO BID #30 capsule 05/20/19 Unknown Rx Pravastatin [Pravachol] 20 mg PO QHS #30 tablet 05/20/19 Unknown Rx amLODIPine 10 mg PO QDAY #30 tablet 05/20/19 Unknown Rx carvediloL [Coreg] 6.25 mg PO BID #60 tablet 05/20/19 Unknown Rx Clindamycin [Clindamycin CAP] 300 mg PO Q6H #40 capsule 02/14/20 Unknown Rx ED Physical Exam - General Limitations: No Limitations General appearance: alert, in no apparent distress - Head Head exam: Present: atraumatic, normocephalic - Eye Eye exam: Present: normal appearance - ENT ENT exam: Present: mucous membranes moist - Expanded ENT Exam Expanded TM/Canal exam: Erythema: Right TM Mouth exam: Absent: drooling, trismus, muffled voice, tongue normal, tongue elevation Teeth exam: Present: dental caries Throat exam: Positive: normal inspection. Negative: tonsillar erythema, tonsillomegaly, tonsillar exudate, R peritonsillar mass, L peritonsillar mass - Neck Neck exam: Present: normal inspection - Respiratory Respiratory exam: Present: normal lung sounds bilaterally. Absent: respiratory distress - Cardiovascular Cardiovascular Exam: Present: regular rate, normal rhythm. Absent: systolic murmur, diastolic murmur, rubs, gallop - GI/Abdominal GI/Abdominal exam: Present: soft, normal bowel sounds - Extremities Exam Extremities exam: Present: normal inspection - Back Exam Back exam: Present: normal inspection - Neurological Exam Neurological exam: Present: alert, oriented X3 - Psychiatric Psychiatric exam: Present: normal affect, normal mood - Skin Skin exam: Present: warm, dry, intact, normal color. Absent: rash ED Course Vital Signs 02/14/20 16:54 Temperature 98.9 F Pulse Rate 86 Respiratory 18 Rate Blood Pressure 207/89 [Right] O2 Sat by Pulse 98 Oximetry ED Medical Decision Making - Lab Data Result diagrams: 02/14/20 17:09 02/14/20 17:09 - Medical Decision Making Labs 02/14/20 17:09 WBC 10.7 RBC 3.64 L Hgb 11.2 Hct 33.1 MCV 91 MCH 31 MCHC 34 RDW 13.9 Plt Count 240 Lymph % (Auto) 30.8 Crenshaw % (Auto) 7.2 Eos % (Auto) 3.2 Baso % (Auto) 0.5 Lymph # 3.3 Crenshaw # 0.8 Eos # 0.3 Baso # 0.1 Seg Neutrophils % 58.3 Seg Neutrophils # 6.2 Vital Signs 02/14/20 16:54 Temperature 98.9 F Pulse Rate 86 Respiratory 18 Rate Blood Pressure 207/89 [Right] O2 Sat by Pulse 98 Oximetry Medicated in ER with NS/rocephin/decadron wbc normal no fever no chills no tachy a/c htn/ckd tolerating po no drooling; controlling secretions no abscess post pharynx no ludwigs no tongue elevation dc home with dc poc including dmd follow up meli pt verbalizes understanding. - Differential Diagnosis ro abscess/cellulitis Critical care attestation.: If time is entered above; I have spent that time in minutes in the direct care of this critically ill patient, excluding procedure time. ED Disposition Clinical Impression: Hypertension, Cellulitis, Dental caries, Non-insulin dependent type 2 diabetes mellitus, Noncompliance with medication regimen, Obesity, CKD (chronic kidney disease) Disposition: DC-01 TO HOME OR SELFCARE Is pt being admited?: No Does the pt Need Aspirin: No Condition: Stable Instructions: Cellulitis (ED), Diabetes Mellitus Type 2 in Adults (ED) Additional Instructions: MEDS ORDERED FOLLOW UP WITH DENTIST MELI CONTINUE HOME MEDS LOW SALT DIET FOR YOUR BLOOD PRESSURE FOLLOW UP WITH YOUR PCP MELI YOUR KIDNEY FUNCTION REMAINS ABNORMAL. YOU NEED TO SEE PCP FOR THIS- YOU REQUIRE ONGOING MONITORING REFERRAL BELOW STAY WELL HYDRATED TYLENOL FOR PAIN AVOID MOTRIN Prescriptions: Clindamycin [Clindamycin CAP] 300 mg PO Q6H #40 capsule Referrals: LEMUEL OSORIO MD [Staff Physician] - 3-5 Days Time of Disposition: 17:20
[2020-02-14] MEDS ORDERED: HYDROcodone/ACETAMINOPHEN 10-325MG TAB PO ONE (17:20)
[2020-02-14 17:27] LABS: Basophils # (Auto) 0.1 K/mm3 (0.0-0.1); Basophils % (Auto) 0.5 % (0.0-1.8); Eosinophils # (Auto) 0.3 K/mm3 (0.0-0.4); Eosinophils % (Auto) 3.2 % (0.0-4.3); Hematocrit 33.1 % (30.3-42.9); Hemoglobin 11.2 gm/dl (10.1-14.3); Lymphocytes # (Auto) 3.3 K/mm3 (1.2-5.4); Lymphocytes % (Auto) 30.8 % (13.4-35.0); Mean Corpuscular HGB Conc 34 % (30-34); Mean Corpuscular Volume 91 fl (79-97); Monocytes # (Auto) 0.8 K/mm3 (0.0-0.8); Monocytes % (Auto) 7.2 % (0.0-7.3); Platelet Count 240 K/mm3 (140-440); Red Blood Count 3.64 M/mm3 (3.65-5.03); Red Cell Distribution Width 13.9 % (13.2-15.2)
[2020-02-14 17:49] LABS: Alanine Aminotransferase 10 units/L (7-56); Albumin 3.3 g/dL (3.9-5); BUN/Creatinine Ratio 16; Blood Urea Nitrogen 36 mg/dL (7-17); Calcium 9.2 mg/dL (8.4-10.2); Hemolysis Index 7
[2020-02-14 21:23] VITALS: BP 237/84
== END 2020-02-14 20:45 | disposition home or self-care (01) ==
LOC: ED 16:41
DX: I12.9 Hypertensive chronic kidney disease with stage 1 through stage 4 chronic kidney disease, or unspecified chronic kidney disease (principal); E11.22 Type 2 diabetes mellitus with diabetic chronic kidney disease; N18.9 Chronic kidney disease, unspecified; K02.9 Dental caries, unspecified; E66.9 Obesity, unspecified; L03.90 Cellulitis, unspecified; Z79.899 Other long term (current) drug therapy; Z91.14 Patient's other noncompliance with medication regimen; Z68.42 Body mass index [BMI] 45.0-49.9, adult
CPT/HCPCS: 36415; 80053; 85025; 96365; 96375; 99283; J0696; J1100; J7030